=== PATIENT | female | born 1940 | race African-American/Black ===

== ENCOUNTER 2016-12-22 13:04 | Inpatient (IN) | payer MEDICARE ==
--- NOTE | ~2016-12-22 | EGD ---
EGD REPORT [facility] [address] [place]. [address] NAME: TYRA YUSUF : 42 STATUS : ADM IN PAT#: [id number] AGE: 76 ADM/REG DATE : 12/22/16 MR#: [id number] REPORT SERV DATE: 12/25/16 DICTATED BY: MICKEY LENNON DATE: 12/25/16 REPORT STATUS : Draft TRANSCRIBED BY: [facility] DATE: 12/25/16 Endoscopy Center Patient Name: Tyra Yusuf Date of : 1940 Attending MD: MICKEY LENNON MD Procedure Date No Time: 12/25/2016 Procedure: Colonoscopy Indications: Abnormal CT of the GI tract, Constipation Referring MD: SIMON ZAZUETA Medicines: Monitored Anesthesia Care Complications: No immediate complications. Estimated blood loss: Minimal. Procedure: Pre-Anesthesia Assessment: - ASA Grade Assessment: III - A patient with severe systemic disease. After I obtained informed consent, the scope was passed under direct vision. Throughout the procedure, the patient's blood pressure, pulse, and oxygen saturations were monitored continuously. The CF [id number] was introduced through the anus and advanced to the cecum, identified by appendiceal orifice and ileocecal valve. The colonoscopy was somewhat difficult due to poor bowel prep and a tortuous colon. The patient tolerated the procedure well. The quality of the bowel preparation was fair. Findings: The digital rectal exam was normal. Pertinent negatives include no palpable rectal lesions. The transverse colon was tortuous. Localized mild inflammation characterized by congestion (edema) and erythema was found in the sigmoid colon, along with a single 8 mm ulceration. Biopsies were taken with a cold forceps for histology. The exam was otherwise without abnormality. Impression: - Tortuous colon. - Localized mild inflammation was found in the sigmoid colon. Likely from fecal stasis / impaction. Biopsied. - The examination was otherwise normal. Recommendation: - Return patient to hospital [facility] for ongoing care. - Full liquid diet. Procedure Code(s): --- Professional --- 45701, Colonoscopy, flexible, proximal to splenic EGD REPORT [facility] [address] [facility] [address] [facility] [place] [id number] NAME: TYRA YUSUF : [birth year] STATUS : ADM IN [facility]#: [id number] AGE: 76 ADM/REG DATE : 12/22/16 MR#: [id number] REPORT SERV DATE: 12/25/16 DICTATED BY: MICKEY LENNON DATE: 12/25/16 REPORT STATUS : Draft TRANSCRIBED BY: [employer] DATE: 12/25/16 flexure; with biopsy, single or multiple Diagnosis Code(s): --- Professional --- Q43.8, Other specified congenital malformations of intestine K52.9, Noninfective gastroenteritis and colitis, unspecified R93.3, Abnormal findings on diagnostic imaging of other parts of digestive tract K59.00, Constipation, unspecified CPT copyright 2013 [employer]. All rights reserved. The codes documented in this report are preliminary and upon mandrel press hand review may be revised to meet current compliance requirements. Mickey Lennon MD MICKEY LENNON MD 12/25/2016 9:25 AM This report has been signed electronically. Number of Addenda: 0 Note Initiated On: 12/25/2016 8:32 AM Scope Withdrawal Time 0 hours 10 minutes 32 seconds [address] [facility] [place] [id number]
--- NOTE | ~2016-12-22 | CN ---
Consultation Report [facility] [address] [place]. [address] NAME: TYRA YUSUF : 42 STATUS : ADM IN PAT#: [id number] AGE: 76 ADM/REG DATE : 12/22/16 MR#: [id number] REPORT SERV DATE: 12/23/16 DICTATED BY: MAR JARAMILLO DATE: 12/23/16 REPORT STATUS : Draft TRANSCRIBED BY: MODL DATE: 12/23/16 GI CONSULTATION DATE OF CONSULTATION: 12/23/2016 REASON FOR CONSULTATION: Evaluation and management of abdominal pain, CT evidence of fecal stasis. HISTORY OF PRESENT ILLNESS: Ms Yusuf is a 76-year-old female patient who has been seen by Dr. Gee De La Cruz in the past, who presented to [facility] on 12/22/2016 with a chief complaint of abdominal pain, nausea, vomiting. She tells me that she has a longstanding history of constipation with her only having a bowel movement every two weeks, but since 11/21/2016, she has not had a bowel movement to really account anything she has had increased abdominal pain as well as nausea and vomiting. CT scan done on admission without contrast showed moderate large retained fecal material within a very redundant colon from the cecum through the distal descending colon at the junction with the proximal sigmoid colon where there was a rapid transition to small caliber, decompressed sigmoid colon with decompressed remaining sigmoid colon to the level of the rectosigmoid junction, but no stricture was seen. No obstructing mass, lesion noted. The patient states that she has been consuming GoLYTELY since admission and has had some passage of fecal material, but she continues to have some abdominal pain and cramping I have discussed with her. We will plan on pursuing a colonoscopy tomorrow with Dr. Mares. Risks, benefits, alternatives, and complications detailed for her to include, but not limited to risk of bleeding, perforation, infection, reaction to medications, as well as cardiac pulmonary side effects. She is agreeable to proceed. Her last colonoscopy was in [address] De La Cruz, variable prep internal hemorrhoids, otherwise normal exam was seen. She states she has not seen a GI physician, had any kind of endoscopic workup since that point in time. PAST MEDICAL HISTORY: Positive for upper GI bleed secondary to Jessy-Shaw tear, CVA, three to four years ago on Plavix, cardiac murmur, arthritis/rheumatoid arthritis, type 2 diabetes, anxiety, depression, anemia. SURGICAL HISTORY: Left total shoulder, hysterectomy, tonsillectomy, bilateral knee, carpal tunnel release, back surgery. SOCIAL HISTORY: She lives independently. She is part of the [employer] program. She denies alcohol, tobacco, or illicits. FAMILY HISTORY: Noncontributory from a GI standpoint. ALLERGIES: TO CODEINE. HOME MEDICATIONS: Albuterol, Catapres, Plavix, vitamin B12, Taztia, Lasix, Neurontin, Apresoline, [place], Plaquenil, Lantus, Dilantin, Hyzaar, melatonin, Protonix, Pravachol, Consultation Report [address] [place]. [address] NAME: TYRA YUSUF : 42 STATUS : ADM IN PAT#: [id number] AGE: 76 ADM/REG DATE : 12/22/16 MR#: [id number] REPORT SERV DATE: 12/23/16 DICTATED BY: MAR JARAMILLO DATE: 12/23/16 REPORT STATUS : Draft TRANSCRIBED BY: JULIETTE DATE: 12/23/16 ZolNanci diggs and Systane. REVIEW OF SYSTEMS: A 10-point review of systems obtained pertinent positives being addressed in the history of present illness. PERTINENT LABORATORY DATA: Sodium 139, potassium is 3.6, BUN is 51, creatinine is 2.06. white count is 10.9, hemoglobin 10.4, hematocrit 31.5. PHYSICAL EXAMINATION: VITAL SIGNS: Temperature 98.5, pulse 76, respirations 20, blood pressure 140/72. GENERAL: Reveals an alert, female, resting in bed with left-sided weakness secondary to CVA. She is cooperative. She is in mild distress secondary to abdominal pain, cramping. She is awake, alert, and oriented x3. HEAD, EARS, EYES, NOSE, AND THROAT: Anicteric. Pupils equal, round, reactive to light accommodation. Normocephalic, atraumatic. NECK: No JVD. No palpable nodes. LUNGS: Diminished throughout with normal respiratory effort exhibited. Equal expansion. CARDIOVASCULAR SYSTEM: Regular rate and rhythm. ABDOMEN: Soft, mildly distended with active bowel sounds. Mildly tender to palpation diffusely. EXTREMITIES: No edema. Normal distal pulses. SKIN: Warm, dry, and intact. ASSESSMENT: 1. Constipation with fecal stasis. 2. Abnormal CT scan of the abdomen and pelvis. 3. Nausea and vomiting. 4. Abdominal pain. #3 and 4 are secondary to #1. 5. History of cerebrovascular accident on Plavix, last dose 12/20/2016. PLAN: 1. Prep for colonoscopy to be done on 12/24/2016. We will check a KUB today to assess adequacy of bowel prep. She was started early this morning on clear liquid diet, n.p.o. after midnight. 2. Check TSH. 3. Other recommendations to follow colonoscopy. MINO/JULIETTE LY Mosquera Consultation Report [address] [place]. [address] NAME: TYRA YUSUF ANN : [birth year] STATUS : ADM IN PAT#: [id number] AGE: 76 ADM/REG DATE : 12/22/16 MR#: [id number] REPORT SERV DATE: 12/23/16 DICTATED BY: MAR JARAMILLO DATE: 12/23/16 REPORT STATUS : Draft TRANSCRIBED BY: JULIETTE DATE: 12/23/16 / [id number] CC: Debbie Brantley M.D.
--- NOTE | ~2016-12-22 | CN ---
Consultation Report [facility] [address] [place]. [address] NAME: TYRA YUSUF : 42 STATUS : ADM IN PAT#: [id number] AGE: 76 ADM/REG DATE : 12/22/16 MR#: [id number] REPORT SERV DATE: 12/31/16 DICTATED BY: GM DANG DATE: 12/31/16 REPORT STATUS : Draft TRANSCRIBED BY: JULIETTE DATE: 12/31/16 CONSULTATION DATE OF CONSULTATION: 12/31/2016 SUMMARY: This is a 76-year-old black female, who was admitted for some abdominal pain and multiple medical issues, and we were asked to see her for sudden onset of right lower extremity pain. An x-ray was taken, which showed questionable gas. This was reviewed with the radiologist and this appears to be a fat plane. She has had no trauma to her right lower extremity and the left lower extremity also has some tenderness. PHYSICAL EXAMINATION: GENERAL: Reveals her to be somewhat alert, but short of breath. HEART: Had tachycardia. ABDOMEN: Soft. EXTREMITIES: Showed some minimal swelling in the right lower extremity. Distal pulses could not be felt. There was some minimal tenderness in the left foot as well as a right foot. No crepitus was noted. No tenderness was noted in the calf or the popliteal fossa. The patient is currently intubated from pulmonary problems. I do not feel there are any surgical indications at present on this lady's foot and we will follow her with you if needed. Please call if needed. LORI/JULIETTE Gm Dang M.D. / [id number] CC: Debbie Brantley M.D.
--- NOTE | ~2016-12-22 | CN ---
Consultation Report [address] [place]. [address] NAME: TYRA YUSUF : 42 STATUS : ADM IN PAT#: [id number] AGE: 76 ADM/REG DATE : 12/22/16 MR#: [id number] REPORT SERV DATE: 12/26/16 DICTATED BY: RAKESH CLOUD DATE: 12/26/16 REPORT STATUS : Draft TRANSCRIBED BY: MODL DATE: 12/26/16 CONSULTATION DATE OF CONSULTATION: REASON FOR CONSULTATION: Mrs Tyra Yusuf is 76-year-old female, who was referred for increasing dyspnea and increasing O2 dependent. HOSPITALIST: Kingsley Walden MD. CVD PHYSICIAN: Humza Prado MD. HISTORY OF PRESENT ILLNESS: Mrs Tyra Yusuf was admitted 12/22/2016 with abdominal pain and significant constipation. Over the last several days, she has required increasing oxygen use and is short of breath. We are consulted for possible volume overload. REVIEW OF SYSTEMS: Negative for chest pain, chest discomfort, palpitations. No fevers or chills recently. She has not noted any lower extremity edema. No significant orthopneic symptoms. PAST MEDICAL HISTORY: 1. Dual chamber pacemaker placed in March of 2014. 2. History of CVA on Plavix. 3. Hypertension, longstanding. 4. Hyperlipidemia, currently on pravastatin. 5. Renal insufficiency with creatinine about 1.5. 6. Interstitial lung disease with dyspnea followed by Pulmonology. 7. Diabetes, on oral hypoglycemics. SOCIAL HISTORY: She currently does not drink or smoke, and she had never smoked in the past. FAMILY HISTORY: Negative for early heart disease. Her father had cardiovascular disease but at the age of 82. Hypertension does run in the family. PHYSICAL EXAMINATION: VITAL SIGNS: Blood pressure is 141/60, pulse 64, she is afebrile. GENERAL: In mild distress, at this time. She is using accessory muscles for breathing. She is alert and cooperative. LUNGS: Bilateral breath sounds are heard without rales. Breath sounds are decreased in both bases. CARDIAC: No murmur, rub, or gallop are suggested. ABDOMEN: Her abdomen is soft. EXTREMITIES: Her extremities demonstrate no edema. Consultation Report [address] [place]. [address] NAME: TYRA YUSUF : 42 STATUS : ADM IN PAT#: [id number] AGE: 76 ADM/REG DATE : 12/22/16 MR#: [id number] REPORT SERV DATE: 12/26/16 DICTATED BY: RAKESH CLOUD DATE: 12/26/16 REPORT STATUS : Draft TRANSCRIBED BY: JULIETTE DATE: 12/26/16 LABORATORY EVALUATION: Renal insufficiency noticed with a creatinine 1.7. BNP is mildly elevated at almost 1000. Potassium down at 4.1, white count is elevated 11, hematocrit is reduced to 25. ASSESSMENT: At the present time, there appears to be some volume overload but primarily interstitial lung disease. We will gently diurese and support. She is going to be moved to the intensive care unit. She will be under the care of Dr. Walden, and I have discussed this case with him. MARIANO/JULIETTE Rakesh Cloud M.D. / [id number] CC: Debbie Brantley M.D.
--- NOTE | ~2016-12-22 | HP ---
History And Physical [place] [address] [facility] [place]. [address] NAME: TYRA YUSUF : 42 STATUS : ADM IN PAT#: [id number] AGE: 76 ADM/REG DATE : 12/22/16 MR#: [id number] REPORT SERV DATE: 12/23/16 DICTATED BY: SIMON BRANTLEY DATE: 12/23/16 REPORT STATUS : Draft TRANSCRIBED BY: MODNelia DATE: 12/23/16 DATE OF ADMISSION: 12/22/2016 This is a 76-year-old black female, patient of ours at [facility] with chronic constipation. She has bowel movements apparently every 2 to 3 weeks. She complained of increased lower abdominal pain over the last 2 to 3 days prior to admission and on the night of admission, vomited. She describes decreased appetite over the last 2 months with weight loss, she is unsure of how much weight. The pain was crampy in the lower abdomen. She has had no fever. She did complain of bloating on the day of admission. She was reported to the ER where she was found to have a blood glucose of 42 and abdominal pain and abnormalities of the CT of the abdomen including fecal stasis and possible sigmoid stricture. She was admitted for evaluation and probable colonoscopy and treatment of the above. REVIEW OF SYSTEMS: She has had no chest pain. She does get short of breath particularly on lying down at night and uses oxygen. She has a history of mixed lung disease. She again denies generalized aching or fever or dysuria. She has not noticed any blood in the stool. PAST MEDICAL HISTORY: Also remarkable for a prior CVA with left-sided hemiparesis. Coronary artery disease with LVH and a history of third-degree heart block for which she has a pacemaker. She has diastolic dysfunction as well as she has very labile hypertension and is on multiple medications for this. She has diabetes with neuropathy and chronic kidney disease that is varied between stage III and stage IV for which she sees a ignition mechanic. She has peripheral vascular disease, she has mixed lung disease, both obstructive and restrictive. She has reflux esophagitis. She has anxiety and depression. She has a history of Rh negative rheumatoid arthritis for which she sees Dr. Garg with a history of Sjogren syndrome. She has functional urinary incontinence and glaucoma. MEDICATIONS: Have been Lortab 5 t.i.d.; Plavix 75 daily; Neurontin 100 in the morning and 500 in the evening; losartan HCT 100/25 daily; hydralazine 75 mg t.i.d.; hydroxychloroquine 400 mg daily; Zofran p.r.n.; vitamin B12 daily; melatonin 3 at bedtime; pantoprazole 20 one daily; Xalatan drops for glaucoma daily; nitroglycerin p.r.n.; senna docusate or senna-S two tablets once a day; saline nasal spray; diltiazem ER 360 daily; Lantus 50 mg a day, NovoLog sliding scale at home; vitamin D3 of 50,000 once a month; clonidine 0.3 one tablet t.i.d.; Biotene mouth spray; MiraLAX daily; Zoloft 100 daily; Flonase twice a day; trazodone 100 at bedtime; Pravachol 40 at bedtime; Lasix 40 a day; DuoNeb 4 times a day as needed for COPD; and O2 at night and p.r.n. SURGICAL HISTORY: She has had left knee surgery. She has had a right cataract surgery. She has had a tonsillectomy and a hysterectomy. SOCIAL HISTORY: She is . She is a former smoker. FAMILY HISTORY: Positive for diabetes, renal failure, dementia, and breast cancer. History And Physical [address] [address] NAME: TYRA YUSUF : 42 STATUS : ADM IN [facility]#: [id number] AGE: 76 ADM/REG DATE : 12/22/16 MR#: [id number] REPORT SERV DATE: 12/23/16 DICTATED BY: SIMON BRANTLEY DATE: 12/23/16 REPORT STATUS : Draft TRANSCRIBED BY: JULIETTE DATE: 12/23/16 PHYSICAL EXAMINATION: VITAL SIGNS: Temperature is 98.7, heart rate 83, respiratory rate 18, O2 saturation 98% on 2 L, blood pressure presently 140/72, but was earlier 188/84. She is 5 feet 2 inches and has not been weighed yet. GENERAL: She is alert, sitting up in the bed. HEENT: Mouth is dry. NECK: Supple. Skin turgor is adequate. There is no JVD. LUNGS: There are diminished breath sounds in the bases and I do not hear any rhonchi or wheezes. She is aerating the upper lungs. HEART EXAM: She has a regular rhythm. She has a pacemaker in place in the left chest wall. She has a high-pitched systolic murmur and is known to have mitral stenosis and some mitral regurgitation. ABDOMEN: Soft. She is tender across the lower abdomen. She has active bowel sounds. EXTREMITIES: I do not see any rashes today but she does have some mild callus of her left heel. There is no edema of the lower extremities. She has palpable distal pulses. There is no calf tenderness. LABORATORY DATA: This morning on admission, her creatinine was 2.56, sodium 140, potassium 3.5, chloride 104, BUN 62, glucose 40, and calcium 8.6. White count 10.9, hemoglobin and hematocrit 10.4 and 31.5 with adequate platelets at 298,000. The morning after admission, her creatinine has improved to 2.06. Her glucose is up to 108. Her albumin is 2.6. ASSESSMENT AND PLAN: 1. Lower abdominal pain. This patient has chronic constipation and uses opioids for her chronic pain. She has fecal stasis on CT and a possible sigmoid stricture. Plan is clear liquid diet, GoLYTELY prep, and colonoscopy. 2. Hypoglycemia, probably secondary to the use of insulin and her recent vomiting. We will hold her Lantus, give her a sliding scale level 1. Continue her D5W and lactated Ringer's for now. 3. Acute renal failure on chronic kidney disease 3 to 4. We will rehydrate and monitor this. 4. Coronary artery disease with left ventricular hypertrophy, diastolic dysfunction, and pacemaker in place. We will continue her medications including Plavix, Lasix, a statin, and losartan and we will obtain an EKG. She also has a CVA with left hemiparesis which is old. We will continue with the Plavix and statin. 5. Hypertension uncontrolled. She is on hydralazine, Cardizem, losartan HCT, and clonidine. We will get all of these medicines restarted here in the office. 6. Degenerative joint disease with seronegative rheumatoid arthritis and will continue her hydroxychloroquine here. Give her IV morphine as needed knowing that this is contributing to the constipation. 7. She is a DNR with limited interventions. ROSSANA/JULIETTE Simon Brantley, History And Physical [address] [address] NAME: TYRA YUSUF : 42 STATUS : ADM IN PAT#: [id number] AGE: 76 ADM/REG DATE : 12/22/16 MR#: [id number] REPORT SERV DATE: 12/23/16 DICTATED BY: SIMON BRANTLEY DATE: 12/23/16 REPORT STATUS : Draft TRANSCRIBED BY: JULIETTE DATE: 12/23/16 [place] / [id number] CC: Simon Brantley M.D.
--- NOTE | ~2016-12-22 | OP ---
Record Of Operation [facility] [address] [place]. [address] NAME: TYRA YUSUF : 42 STATUS : ADM IN PAT#: [id number] AGE: 76 ADM/REG DATE : 12/22/16 MR#: [id number] REPORT SERV DATE: 12/31/16 DICTATED BY: CHI BRYANT DATE: 12/31/16 REPORT STATUS : Draft TRANSCRIBED BY: MODL DATE: 12/31/16 DATE OF PROCEDURE: 12/31/2016 TIME: 1000 hours. PROCEDURE: Intubation. INDICATION: Acute hypoxic respiratory failure. Pre-oxygenated 100% oxygen monitored by blood pressure, EKG, and pulse oximetry. Etomidate 20 mg IV given. #7.5 endotracheal tube passed under direct laryngoscopic vision to 23 cm. Tube seen to enter between cords. Confirmed by end-tidal CO2 monitor. Good breath sounds bilaterally. Saturation 100% post. RP/JULIETTE Chi Bryant M.D. / [id number] CC: Debbie Brantley M.D.
--- NOTE | ~2016-12-22 | EGD ---
EGD REPORT [facility] [address] [address] NAME: TYRA MONTALVO : 42 STATUS : ADM IN PAT#: [id number] AGE: 76 ADM/REG DATE : 12/22/16 MR#: [id number] REPORT SERV DATE: 12/25/16 DICTATED BY: MICKEY LENNON DATE: 12/25/16 REPORT STATUS : Draft [facility]ANSCRIBED BY: [facility] DATE: 12/25/16 Endoscopy Center Patient Name: Tyra Montalvo Date of : 1940 Attending MD: MICKEY LENNON MD Procedure Date No Time: 12/25/2016 Procedure: Upper GI endoscopy Indications: Nausea with vomiting Referring MD: SIMON ZAZUETA Medicines: Monitored Anesthesia Care Complications: No immediate complications. Estimated blood loss: None. Procedure: Pre-Anesthesia Assessment: - ASA Grade Assessment: III - A patient with severe systemic disease. After obtaining informed consent, the endoscope was passed under direct vision. Throughout the procedure, the patient's blood pressure, pulse, and oxygen saturations were monitored continuously. The GIF [id number] was introduced through the mouth, and advanced to the second part of duodenum. The upper GI endoscopy was accomplished without difficulty. The patient tolerated the procedure well. Findings: The examined esophagus was normal. The Z-line was regular and was found 40 cm from the incisors. The entire examined stomach was normal. The examined duodenum was normal. The cardia and gastric fundus were normal on retroflexion. Impression: - Normal examination. Recommendation: - Perform a colonoscopy today. Procedure Code(s): --- Professional --- 69881, Esophagogastroduodenoscopy, flexible, transoral; diagnostic, including collection of specimen(s) by brushing or washing, when performed (separate procedure) Diagnosis Code(s): --- Professional --- R11.2, Nausea with vomiting, unspecified CPT copyright 2013 [employer]. All rights reserved. EGD REPORT [facility] [address] [facility] [facility]. [address] NAME: TYRA MONTALVO : 42 STATUS : ADM IN [facility]#: [id number] AGE: 76 ADM/REG DATE : 12/22/16 MR#: [id number] REPORT SERV DATE: 12/25/16 DICTATED BY: MICKEY LENNON DATE: 12/25/16 REPORT STATUS : Draft TRANSCRIBED BY: [employer] DATE: 12/25/16 The codes documented in this report are preliminary and upon classics teacher review may be revised to meet current compliance requirements. Mickey Lennon MD MICKEY LENNON MD 12/25/2016 8:51 AM This report has been signed electronically. Number of Addenda: 0 Note Initiated On: 12/25/2016 7:46 AM Scope Withdrawal Time 0 hours 0 minutes 0 seconds [id number] [facility] [place] [address]
--- NOTE | ~2016-12-22 | CN ---
Consultation Report [facility] [address] [place]. [address] NAME: TYRA YUSUF : 42 STATUS : ADM IN PAT#: [id number] AGE: 76 ADM/REG DATE : 12/22/16 MR#: [id number] REPORT SERV DATE: 12/29/16 DICTATED BY: CONNIE MEDRANO DATE: 12/29/16 REPORT STATUS : Draft TRANSCRIBED BY: MODL DATE: 12/29/16 CONSULTATION DATE OF CONSULTATION: REASON FOR ADMISSION: Abdominal pain and constipation. REASON FOR REQUEST: Acute kidney injury on chronic kidney disease. HISTORY OF PRESENT ILLNESS: This is a very pleasant 76-year-old female patient, who participates in the PACE program and is followed in our office originally by Dr. Storm Hernandez until group home and now, followed by Dr. Trisha Beasley. Baseline creatinine appears to be around 1.3 to 1.8 with consistent chronic kidney disease, stage 3. She reported to [facility] initially with a complaint of ongoing abdominal pain and constipation. She was placed inpatient in favor of further workup and supportive care and was initially provided IV hydration. This precipitated a volume overload event that the patient was transitioned to the ICU setting where she was seen in consultation by Dr. Walden as well as Dr. Rakesh Colud. Dr. Walden placed her on BiPAP and suggested that the patient required diuretics increasing diuretic support to provide a clearance of her pulmonary vasculature. Cardiology was also following the patient for a known cardiologic history. We are consulted today to evaluate the patient for a rise in her serum creatinine. When she was initially placed on IV fluids, her serum creatinine did fall from a high of 2.56 and decreased to 1.86, 1.57, then 1.73, and her serum creatinine has increased over the last couple of days now at 2.20 prompting an evaluation request from our service. The patient is awake and alert. She denies current chest pain. She does exhibit an increased work of breathing and an increased oxygen requirement. No nausea, vomiting, or diarrhea. PAST MEDICAL HISTORY: Positive for Sjogren syndrome; insulin-dependent diabetes mellitus; chronic kidney disease, stage 3; chronic anemia; as well as coronary artery disease with last echocardiogram in October of 2016. CURRENT ACTIVE MEDICATIONS: Include the following: Artificial tears, Catapres, Plavix, Cardizem, Lovenox, ferrous sulfate, Flonase, Neurontin, Apresoline, Plaquenil, NovoLog, Cozaar, Xalatan, melatonin, Protonix, Zosyn, MiraLAX, Pravachol, Zoloft, p.r.n. anti-pain and antiemetic medications, and electrolyte protocol. REVIEW OF SYSTEMS: Completed. Please see HPI for pertinent details. SOCIAL HISTORY: No ETOH. No illicit drugs. No tobacco. She lives here locally and does require chronically 2 L oxygen support at home. PHYSICAL EXAMINATION: VITAL SIGNS: Blood pressure 143/65, temperature 98.3, respiratory rate at 20, heart rate is Consultation Report [address] [place]. [address] NAME: TYRA YUSUF : 42 STATUS : ADM IN [facility]#: [id number] AGE: 76 ADM/REG DATE : 12/22/16 MR#: [id number] REPORT SERV DATE: 12/29/16 DICTATED BY: CONNIE MEDRANO DATE: 12/29/16 REPORT STATUS : Draft TRANSCRIBED BY: JULIETTE DATE: 12/29/16 60 beats per minute and regular. She is 94% and now on 5 L. GENERAL: She is awake, alert, oriented x3, in no acute distress, but does show an increased work of breathing. HEENT: Normocephalic, atraumatic. Normal ocular movements. No scleral icterus or conjunctival pallor is appreciated. NECK: Supple. No thyromegaly. No JVD or mass. CHEST: Shows positive S1 and S2. No rubs or gallops. LUNGS: Diminished with crackles noted throughout. The upper 2/3 of her lung michele without wheezes, not overtly labored, but somewhat mildly tachypneic. GI: Examination has positive bowel sounds in all four quadrants. No appreciable mass or tenderness. : Examination is deferred. She does have a Lange catheter to bedside drainage with clear yellow urine. EXTREMITIES: Show positive pulses to all four extremities. No clubbing, cyanosis, or edema with the exception of her upper extremity on the left, which is swollen and has underwent an assessment for DVT finding no evidence of deep vein thrombosis. SKIN: Warm, dry, and intact to the visualized surfaces. No rashes, lesions, or ecchymosis. NEUROLOGIC: She appears to be grossly intact. Nonfocal, and she is of appropriate mood and affect. LABORATORY DATA: Pertinent laboratories and imaging to this evaluation: Electrolyte profile; sodium 136, potassium 3.3, chloride 100, CO2 26, BUN 43, creatinine 2.04, reflected GFR at 27 mL/minute, glucose of 163, calcium 7.9. CBC shows white blood cell count of 15.3, RBC 2.76, hemoglobin of 7.6, hematocrit 23.5, platelets of 188. Venous Doppler shows no evidence of upper extremity DVT, as above. Urinary culture rather suggests gram-negative bacilli. Portable chest x-ray taken on 12/28/2016 shows severe diffuse bilateral pulmonary infiltrates consistent with pulmonary edema with no change from previous study. IMPRESSION AND PLAN: Acute kidney injury on chronic kidney disease. The patient is admitted to the PACE program. Baseline creatinine approximately 1.4 to 1.7. Followed previously by Dr. Storm Hernandez, now by Dr. Trisha Beasley in our practice. She was initially provided IV fluids, became volume overloaded, transitioned to the unit. Her diuresis was undertaken and has now transitioned back to the floor. In review of her current medications, it appears her diuretics have been held in light of her rising creatinine, but she is beginning to show a definitive volume overload pattern once again with increased work of breathing, distributed rhonchi in her lung michele and increased oxygen demands. Her last echocardiogram in October of this year showed 60% ejection fraction, mild aortic stenosis, mild mitral stenosis, mild to moderate posteriorly directed eccentric mitral regurgitation. No RVSP is available, reports indicate pulmonary pressures. This patient's acute kidney injury on chronic kidney disease is likely multifactorial in nature. You must consider possible volume fluctuation and increase in diuretic burden, plus or minus affects of her ARB, and cannot completely exclude at this point the possibility of a myocardial renal syndrome. In light of her worsening dyspnea and worsening oxygenation and increased requirement for oxygen support, we will hold ARB. Dose with IV albumin, dose Bumex in pulse dosing form. She has a Lange catheter placed. Follow her closely. Strict I's and O's, Consultation Report [facility] [address] [place]. [address] NAME: TYRA YUSUF ANN : 42 STATUS : ADM IN PAT#: [id number] AGE: 76 ADM/REG DATE : 12/22/16 MR#: [id number] REPORT SERV DATE: 12/29/16 DICTATED BY: CONNIE MEDRANO DATE: 12/29/16 REPORT STATUS : Draft TRANSCRIBED BY: MODL DATE: 12/29/16 daily weights. Consider a repeat of echocardiogram. Restrict her sodium. Restrict her fluids as listed above. A bedside swallow eval. Further modification of treatment plan may be made based on clinical presentation of the patient, laboratory results, further consultation with Renal attending. We appreciate consultation. We are glad to follow this patient with you. DICTATED BY: Jose Francisco Berry NP JR/JULIETET Connie Medrano MD / [id number] CC: Debbie Brantley M.D.
--- NOTE | ~2016-12-22 | CN ---
Consultation Report [facility] [address] [place]. [address] NAME: TYRA YUSUF : 42 STATUS : ADM IN PAT#: [id number] AGE: 76 ADM/REG DATE : 12/22/16 MR#: [id number] REPORT SERV DATE: 12/31/16 DICTATED BY: MONIKA INFANTE DATE: 12/31/16 REPORT STATUS : Draft TRANSCRIBED BY: MODNelia DATE: 12/31/16 INFECTIOUS DISEASE CONSULT DATE OF CONSULTATION: REFERRING PHYSICIAN: Debbie Brantley M.D. REASON FOR REFERRAL: Evaluation and treatment of soft tissue infection. HISTORY OF PRESENT ILLNESS: The patient is a 76-year-old female. She has a past medical history of hypertension, diabetes mellitus, coronary artery disease, chronic renal insufficiency, Sjogren syndrome, for which she was just on Plaquenil, degenerative joint disease, had total knee replacement on the left. She came in here to [facility] on December 22. She has been followed in the pace program, has had increasing abdominal pain, and severe problems with constipation. She was seen by GI and plans were made for colonoscopy, it took several days to achieve bowel prep due to the severe constipation that was done on December 25 with findings of only pathology was an ulcer in the sigmoid colon that was approximately 8 cm that was biopsied and it showed no evidence of malignancy, just a hyperplastic polyp. No colitis seen. She spiked a fever on December 27. Cultures were done of her blood and her urine. Blood cultures remained negative. She was started empirically on Zosyn. Urinalysis did show pyuria and a culture grew E. coli, greater than 100,000 colonies, so she was switched to Levaquin two days ago and has been on that since. Yesterday, she began complaining of pain in her right ankle and foot that grew progressively severe, the patient terms it as a 10/10. She grew more hypoxic and was transferred to [facility] last evening. She had a low-grade fever to 100.3. Her white blood cell count, she had been up to 15 on the yesterday, it was 13.2 today that without a left shift. An x-ray was done and shows what appears to be gas in the dorsal tissues of the foot and extending up into the tissue planes of the ankle. The patient denies any trauma there. She has never had surgery on that side. She has had no lesions, sores, scratches, cuts, and no unusual environmental exposures. PAST MEDICAL HISTORY: Otherwise unremarkable. MEDICATIONS: As described above. ALLERGIES: NO KNOWN ANTIMICROBIAL ALLERGIES. SOCIAL HISTORY: She lives at home with her . Nonsmoker. No history of alcohol or substance abuse. FAMILY HISTORY: Noncontributory. PHYSICAL EXAMINATION: GENERAL: She is awake, alert, and oriented x3, but in severe distress with the pain in the Consultation Report [address] [place]. [address] NAME: TYRA YUSUF : 42 STATUS : ADM IN PAT#: [id number] AGE: 76 ADM/REG DATE : 12/22/16 MR#: [id number] REPORT SERV DATE: 12/31/16 DICTATED BY: MONIKA INFANTE DATE: 12/31/16 REPORT STATUS : Draft TRANSCRIBED BY: JULIETTE DATE: 12/31/16 foot and writhing whenever it is touched. VITAL SIGNS: Her temperature 100.3, pulse 60, respirations 47, blood pressure 112/62. Her weight is 83 kg. HEENT: Sclerae clear. No oropharyngeal lesions. NECK: Supple without meningeal signs. LUNGS: There are decreased breath sounds and rales bilaterally in the bases. HEART: Irregular. ABDOMEN: Soft, nontender. Positive bowel sounds. EXTREMITIES: The right ankle and foot appears to be mildly swollen. There is exquisite tenderness, but no crepitance palpated along those tissues. There are no lesions on the skin itself. No other skin or soft tissue lesions. LABORATORY DATA: Her white blood cell count as previously mention, 13.2 today, hematocrit 24, and platelets 195. BUN and creatinine 49 and 2.3. Procalcitonin is pending. IMPRESSION: Possible necrotizing fascitis based on the severe pain and gas, although the exam is not as impressive as I would have expected for that and I also would have expected more in the way of fever and elevated white blood cell count. If this is present, I would be worried about group A Strep, as well as a polymicrobial synergistic infection, possibly from a bowel source. RECOMMENDATIONS: 1. We will change the Zosyn to clindamycin and cover all of the above possibilities and start the stat. 2. Surgical evaluation, stat. I have discussed her with Dr. Vikas Aguirre because if this is necrotizing fascitis, she will need a debridement if he agrees. I have also discussed her with Dr. Debbie Brantley, the referring physician, and Dr. Devin Bryant in the Intensive Care Unit. Finally, we will follow the patient with you. I appreciate very much your consulting on this patient. KYLE/JULIETTE Monika Infante M.D. / [id number] CC: Bronwyn Mora M.D.
--- NOTE | ~2016-12-22 | DS ---
Discharge Summary [place] [address] [place]. [address] NAME: TYRA YUSUF ANN : 42 STATUS : DIS IN PAT#: [id number] AGE: 76 ADM/REG DATE : 12/22/16 MR#: [id number] REPORT SERV DATE: 01/16/17 DICTATED BY: DEBBIE BRANTLEY DATE: 01/15/17 REPORT STATUS : Draft TRANSCRIBED BY: MODL DATE: 01/15/17 Data Collection from hospitalization DISCHARGE DIAGNOSES: 1. Respiratory failure. 2. Renal failure. 3. Shock liver injury. 4. Acidosis. 5. 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 6. Hypertension. 7. Diabetes. 8. History of cerebrovascular accident with left-sided hemiparesis. 9. Coronary artery disease with left ventricular hypertrophy. 10.History of third-degree heart block, status post pacemaker. 11.Diastolic dysfunction. 12.Diabetic neuropathy. 13.Chronic kidney disease. 14.Peripheral vascular disease. 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 16.Reflux esophagitis. 17.Anxiety and depression. 18.Rh negative rheumatoid arthritis. 19.History of Sjogren syndrome. 20.Functional urinary incontinence. 21.Glaucoma. 22.Former smoker. CONSULTATION: 1. LY Mosquera. 2. Rakesh Cloud M.D. 3. Kingsley Walden MD. 4. Julian Portillo MD. 5. Uriel Wadsworth M.D. 6. Vikas Aguirre M.D. PROCEDURES PERFORMED: 1. Upper GI endoscopy on 12/25/2016. 2. Colonoscopy on 12/25/2016. 3. Intubation on 12/31/2016. 4. CT scan of the abdomen and pelvis without contrast on 12/22/2016. 5. Venous Doppler ultrasound of the right upper extremity on 12/27/2016. 6. CT scan of the chest without contrast on 12/29/2016. 7. Venous Doppler ultrasound of the right lower extremity. PATHOLOGY: Sigmoid colon biopsy - hyperplastic polyp. No colitis seen. DISPOSITION: [facility]. Discharge Summary [place] [address] [place]. [address] NAME: TYRA YUSUF ANN : 42 STATUS : DIS IN PAT#: [id number] AGE: 76 ADM/REG DATE : 12/22/16 MR#: [id number] REPORT SERV DATE: 01/16/17 DICTATED BY: BRANTLEYDEBBIEYannick DATE: 01/15/17 REPORT STATUS : Draft TRANSCRIBED BY: JULIETTE DATE: 01/15/17 HOSPITAL COURSE: This was a 76-year-old female, who was a patient of ours at [facility] with chronic constipation. She had bowel movements apparently every two to three weeks. She complained of increased lower abdominal pain over the past two to three days prior to admission, and on the night of admission, she vomited. She described having a decreased appetite over the past two months with weight loss. She was unsure of how much weight. The pain was crampy in the lower abdomen. She had had no fever, but did complain of bloating on the day of admission. She presented to the emergency room, was found to have a glucose of 42 and abdominal pain and abnormalities of the CT scan of the abdomen including fecal stasis and possible sigmoid stricture. She was admitted to the hospital at this time for further evaluation and treatment. Upon admission, she was found to have fecal stasis on CT scan and possible sigmoid stricture. She was placed on a clear liquid diet. GoLYTELY prep was given. It was felt that she may need to undergo a colonoscopy. Her hypoglycemia was probably secondary to the use of insulin and her recent vomiting. Lantus was held. She was placed on level 1 sliding scale. D5W and lactated Ringer's was continued. The patient was felt to have acute renal failure on chronic kidney disease, stage III-IV, rehydration would be provided. Plavix, Lasix, statin, and losartan were continued. EKG was going to be obtained. She had a history of CVA with left hemiparesis. She was on hydralazine, Cardizem, losartan, hydrochlorothiazide, and clonidine. These medications were going to be restarted. Hydroxychloroquine would be continued here. She would be given IV morphine as needed for pain. She was a DNR code status with limited intervention. She was seen by Pedrito Bonilla for evaluation and management of abdominal pain and CT evidence of fecal stasis. The patient said she had been consuming GoLYTELY since admission and had some passage of fecal material, but she continued to have some abdominal pain and cramping. It was felt that she should undergo a colonoscopy. Her last colonoscopy was in 2005. She said she had not had any kind of endoscopic workup since that point in time. Other recommendations would follow the colonoscopy. A TSH was going to be checked. On 12/24/2016, she said she felt better. She had left lower abdominal cramping after having her first firm bowel movement and then loose stools. She said that she vomited a small amount of blood. Her bowel movement had a small amount of blood seen. She had no edema. IV glucose was stopped. Bowel prep continued. We were also going to consider an EGD. Her IV fluids were decreased. Potassium supplementation was given. On 12/25/2016, she was taken to the endoscopic suite where she underwent upper GI endoscopy. This was a normal examination. A colonoscopy was also performed. She was found to have a tortuous colon. There was localized mild inflammation found in the sigmoid colon, this was likely from fecal stasis/impaction, it was biopsied. The examination was otherwise normal. The patient does have normocytic anemia. The following day, she had had a hypoxic episode around 4:00 a.m. O2 saturation was 58%. Rebreather was placed and her O2 saturation increased to 97%-100%. The patient was somnolent. IV Lasix was given. The head of her bed was elevated. Clonidine was increased. IV MiraLAX was being given. The patient was felt to have a redundant colon. She does use opiates. On 12/27/2016, she developed a temperature to 101. She denied any increased cough. She had used BiPAP overnight. Her diet was going to be advanced. Gentle IV fluids were being given. MiraLAX was provided. She still had significant dyspnea. Recent echocardiogram in October had shown normal biventricular function. She had [id number] mitral Discharge Summary [place] [id number] [facility] [place]. [address] NAME: YUSUF,ROSEMARIE : 42 STATUS : DIS IN PAT#: [id number] AGE: 76 ADM/REG DATE : 12/22/16 MR#: [id number] REPORT SERV DATE: 01/16/17 DICTATED BY: DEBBIE BRANTLEY DATE: 01/15/17 REPORT STATUS : Draft TRANSCRIBED BY: MODL DATE: 01/15/17 regurgitation. She developed some left upper extremity edema. A venous Doppler ultrasound of the right upper extremity was performed. There was no evidence of DVT. She was seen by Dr. Kingsley Walden. An ABG had shown no significant hypercapnia. Chest x-ray findings were consistent with pulmonary edema. Her overall picture was not consistent with acute exacerbation of pulmonary fibrosis at this time. Diuresis was continued. Arterial blood gas would be rechecked. BNP was going to be checked as well. The patient was also seen by Dr. Rakesh Cloud. The patient had had increasing dyspnea and then was increasingly O2 dependent. Creatinine level was 1.7. BNP was mildly elevated at almost 1000. White count was 11. She appeared to have some volume overload, but primarily interstitial lung disease. Gentle diuresis and supportive care would be continued. She had been moved to the intensive care unit. The following day, she said she wanted to go home. She had no chest pain. White count was 15.1. Lasix was held. She was felt to have acute kidney injury. Creatinine level was 2.22. The patient said she did not want to undergo dialysis. DuoNebs were being provided. IV fluids were stopped. We encouraged oral liquids. Lasix was held. On 12/29/2016, she was seen by Dr. Julian Portillo regarding acute kidney injury on chronic kidney disease. Her creatinine level had increased to 2.20. She denied any current chest pain, but did exhibit an increased work of breathing and increased oxygen requirement. Urinary culture had suggesting gram-negative bacilli. Her venous Doppler showed no evidence of upper extremity DVT. Her baseline creatinine was approximately 1.4 to 1.7. Her acute kidney injury on chronic kidney disease was likely multifactorial in nature. She was given a dose of IV albumin and a dose of Bumex in the pulse dosing form. A Lange catheter was in place. Fluid would be restricted. Bedside swallow evaluation was requested. A CT scan of the chest without contrast was performed. This revealed small free-flowing bilateral pleural effusions as well as heart failure with severe cardiomegaly. A suppository was given for constipation. Echocardiogram was performed. On 12/30/2016, a venous Doppler ultrasound of the right lower extremity was performed. She still had dyspnea and required BiPAP at bedtime and 6 liters during the day. She had complained of right foot pain. There was no reported trauma. There was normal compressibility of the deep venous system throughout the right lower extremity with no visible intraluminal thrombus. There was spontaneous venous flow throughout. Superficial venous system was normal. Speech/Language pathology performed a bedside swallow study. On 12/31/2016, her pacemaker was interrogated and was normal. She had preserved biventricular function with only mild diastolic dysfunction. This was not likely sufficient to cause her degree of dyspnea or volume overload. Leukocytosis was improving. She was transferred to the [facility]. She remained on BiPAP. She was placed on Precedex. She had increased work of breathing. She was short of breath. She had no cough. The patient had a DNI code status. Her hypoxia continued to worsen, requiring increase in BiPAP. She was seen by Dr. Uriel Wadsworth for evaluation and treatment of soft tissue infection. Her blood cultures had remained negative. Urinalysis had shown pyuria and grew E. coli greater than 100,000 colonies. She had been on Zosyn and was switched to Levaquin. She began complaining of pain in the right ankle and foot that grew progressively severe. She described it as 10/10. She grew more hypoxic and had been transferred to the [facility]. She had a low-grade fever of 100.3. Her white blood cell count was now 13.2 without left shift. X- ray appeared to show some gas in the dorsal tissues of the foot and extending up into the tissue planes of the ankle. The patient had denied any trauma. She had never had surgery on that side. She was felt to have possible necrotizing fasciitis based on the severe pain Discharge Summary [address] [address] NAME: YUSUF,ROSEMARIE : 42 STATUS : DIS IN [facility]#: [id number] AGE: 76 ADM/REG DATE : 12/22/16 MR#: [id number] REPORT SERV DATE: 01/16/17 DICTATED BY: DEBBIE BRANTLEY DATE: 01/15/17 REPORT STATUS : Draft TRANSCRIBED BY: MODL DATE: 01/15/17 and gas, although the exam was not as impressive as we would have expected. If this was present, she would be worried about group A strep as well as a polymicrobial synergistic infection possibly from a bowel source. Zosyn was changed to clindamycin. A surgical evaluation was requested. The patient was seen by Dr. Vikas Aguirre. An x-ray of the right lower extremity had shown questionable gas, this was reviewed with the radiologist as it appeared to be a fat plane. She had had no trauma to the right lower extremity. The left lower extremity also had some tenderness. The patient was currently intubated. He did not feel that there was any surgical indication at the present time on this patient's foot. A PICC line was inserted. The patient's condition had declined. She developed acute hypoxic respiratory failure and required intubation by Dr. Devin Bryant. According to the nurse, she was responding well to Bumex drip. The following day, she continued to have pain in the right lower extremity. Uric acid was going to be checked. Bumex drip continued. Diuretic challenge continued. She remained sedated on the vent. She had diffuse rhonchi in her lungs. Clonidine and hydralazine were stopped. She was felt to be critically ill on the ventilator. Clindamycin was stopped. White count was 15.7. Her pacemaker interrogation revealed normal function. On 01/02/2017, the patient was unresponsive. Her blood pressure was 70/40 on full doses of pressors. We were unable to obtain O2 saturation. She was felt to have a shock liver injury and acidosis. She was felt to have probable DIC. The patient had arrested, requiring intubation the day previously. The patient was made a DNR code status with no FRAMER. Her condition continued to decline, and later that morning, she was found without blood pressure, pulse, or respirations. She was pronounced at 9:45 a.m. and released to the above-mentioned home. Information collected by: Beatriz Mancera I submit the above information as my discharge summary. TG/MODL Debbie Brantley M.D. / [id number] CC: Bronwyn Mora M.D. Hans E Yehnert, MD Mark Anderson, M.D. Destin Griffin-Trussell, FNP Coleman Arnold, M.D.
--- NOTE | ~2016-12-22 | CN ---
Consultation Report [facility] [address] [place]. [address] NAME: TYRA YUSUF : 42 STATUS : ADM IN PAT#: [id number] AGE: 76 ADM/REG DATE : 12/22/16 MR#: [id number] REPORT SERV DATE: 12/27/16 DICTATED BY: KINGSLEY WALDEN DATE: 12/27/16 REPORT STATUS : Draft TRANSCRIBED BY: MODL DATE: 12/27/16 PULMONARY CONSULTATION DATE OF CONSULTATION: 12/26/2016 CHIEF COMPLAINT: Unable to obtain from patient. HISTORY OF PRESENT ILLNESS: Mrs. Yusuf is a 76-year-old female with a past medical history noted below. This consult was called in last night for which my colleague saw the patient last night and felt that this patient was currently in heart failure. The patient has had increasing oxygen requirements, chest x-ray with significant amount of infiltrates bilaterally. She has been placed on BiPAP therapy throughout the night. The patient states this morning she feels a whole lot better, however she is quite sleepy. The patient states that, this is since she is still waking up. She is on 6 L of oxygen currently and yesterday she was on a non rebreather. Interestingly enough, an ABG yet done yesterday showed no significant hypercapnia. No ABG was done today. The patient is not able to give me an adequate history as she is dozing off during my clinical encounter with her this morning. PAST MEDICAL HISTORY: History of stroke, left-sided hemiparesis, coronary artery disease with diastolic dysfunction, and AV block, status post pacemaker, chronic kidney disease, mild interstitial lung disease, followed by Dr. Kenyon, reflux esophagitis, depression and anxiety, rheumatoid arthritis, glaucoma. HOME MEDICATIONS: Home medication list reviewed, the patient is on several cardiac medications, DuoNeb therapy. ALLERGIES: CODEINE. SOCIAL HISTORY: The patient currently resides with the [facility]. FAMILY HISTORY: Significant for diabetes, renal failure, breast cancer, dementia per chart. REVIEW OF SYSTEMS: Unable to obtain due to the patient's current encephalopathy. PHYSICAL EXAMINATION: VITAL SIGNS: The patient has currently temperature of maximum 101.4, heart rate in the 50s, respiratory rate 22-30, currently on 6 L nasal cannula with an oxygen saturation 95%, blood pressure currently 150s systolic. GENERAL: The patient is sleepy, she is arousable, can answer simple questions. HEENT: Could not ascertain whether there is any JVD due to neck circumference. PULMONARY: The patient has rapid shallow breathing, distant breath sounds. However, there are crackles bilaterally in the posterior and anterior lung michele. CARDIAC: Bradycardia, no murmurs. Consultation Report [facility] [address] [place] [address] NAME: TYRA YUSUF : 42 STATUS : ADM IN PAT#: [id number] AGE: 76 ADM/REG DATE : 12/22/16 MR#: [id number] REPORT SERV DATE: 12/27/16 DICTATED BY: KINGSLEY WALDEN DATE: 12/27/16 REPORT STATUS : Draft TRANSCRIBED BY: JULIETTE DATE: 12/27/16 ABDOMEN: Soft, nontender, nondistended. EXTREMITIES: Right arm swelling, no lower extremity edema. LABORATORY EXAMINATION: Mild leukocytosis, chronic kidney disease, BNP 993 which is new from her baseline of around 90s. IMAGING DATA: Chest x-ray shows findings consistent with pulmonary edema. ASSESSMENT/PLAN: Mrs. Yusuf is a 76-year-old female with a past medical history of heart failure, who presents to the [facility]monary [facility] with acute hypoxic respiratory failure and somnolence. Our recommendations are below. 1. Unlikely that this is significant from an interstitial lung disease perspective. Upon reviewing her past imaging from 11/2016, she had no significant lower lung field scarring. CT scan from 2010 is essentially clear, however, there is a cardiology report from Dr. Kenyon's office from 2009 that the patient had mild interstitial lung disease. Overall clinical picture is not consistent with an acute exacerbation of pulmonary fibrosis. 2. Would recommend diuresis for which the patient is getting Lasix every 8 hours, p.r.n. BiPAP. 3. We will obtain an arterial blood gas to make sure the patient is not in acute hypercapnic respiratory failure. 4. Check a BNP in the morning to evaluate level of diuresis. 5. Check a left upper extremity Doppler to rule out any DVT due to the swelling. Thank very much for this consultation. We will continue to follow along with you, please call us with any further questions or concerns. HFQ/MODL Kingsley Walden MD / [id number] CC: Debbie Brantley M.D.
[2016-12-22 11:56] LABS: A/G RATIO 0.5 (0.7-1.9); ALBUMIN 2.8 G/DL (3.5-5.0); ALKALINE PHOSPHATASE 80 U/L (45-117); BUN (BLOOD UREA NITROGEN) 62 MG/DL (6-23); CALCIUM, SERUM 8.6 MG/DL (8.5-10.4); CHLORIDE, SERUM 104 MMOL/L (96-112); CO2 (CARBON DIOXIDE) 26 MMOL/L (24-34); CREATININE 2.56 MG/DL (0.55-1.02); GFR AFRICAN AMERICAN 20 ML/MIN (>=60); GFR NON AFRICAN AMERICAN 18 ML/MIN (>=60); GLOBULIN 5.6 G/DL (2.5-4.1); GLUCOSE, SERUM 40 MG/DL (60-99); POTASSIUM, SERUM 3.5 MMOL/L (3.5-5.3); SGOT(AST) 28 U/L (5-40); SGPT(ALT) 13 U/L (5-65); SODIUM, SERUM 140 MMOL/L (135-148); TOTAL BILIRUBIN 0.4 MG/DL (0-1.2); TOTAL PROTEIN 8.4 G/DL (6.0-8.5)
[2016-12-22 12:01] LABS: BASOPHILS 0.2 %; BASOPHILS ABSOLUTE 0.02 10/3/uL (0.0-0.16); EOSINOPHILS 0.8 %; EOSINOPHILS ABSOLUTE 0.09 10/3/uL (0.0-0.53); ER CBC TAT 0 Hrs 11 Mins; HEMATOCRIT 31.5 % (36.0-48.0); HEMOGLOBIN 10.4 g/dL (12.0-16.0); IMMATURE GRANULOCYTES 0.3 %; IMMATURE GRANULOCYTES ABSOLUTE 0.03 10/3/uL (0.0-0.11); LYMPHOCYTES ABSOLUTE 1.09 10/3/uL (0.67-4.30); MEAN CORPUSCULAR HEMOGLOB 27.7 pg (26.0-34.0); MEAN PLATELET VOLUME 9.8 fL (9.2-13.0); MONOCYTES 4.4 %; MONOCYTES ABSOLUTE 0.48 10/3/uL (0.21-1.20); NEUTROPHILS 84.3 %; NEUTROPHILS ABSOLUTE 9.19 10/3/uL (2.02-8.40); PLATELET COUNT 298 10/3/uL (150-400); RBC DISTRIBUTION WIDTH 15.2 % (12.0-16.0); RED CELL COUNT 3.75 10/6/uL (4.0-5.6); WHITE BLOOD CELLS 10.9 10/3/uL (4.5-10.5)
[2016-12-22 12:02] LABS: MANUAL DIFF NO %
[2016-12-22 12:57] LABS: ASCORBIC ACID (UR NOT ORDER) NEG (NEG); BILIRUBIN, URINE NEGATIVE (NEG); ER URINALYSIS TAT 0 Hrs 00 Mins; KETONE, URINE NEGATIVE (NEG); LEUKOCYTE ESTERASE(NOT OR NEG (NEG); NITRITE (URINE) NEG (NEG); WBC (NOT ORDERED) (RFLEX) 2 (0-5)
[~2016-12-22 13:04] MED LIST: *UNABLE1; ACET500CAP PO; AMARYL4 PO; AMB5 PO; ASA5GR PO; ASAB PO; ASAEC PO; ATV.5 PO; BIOTENE DRY MT; CARDIZEM LA360 MG PO; CAT2 PO; CELEXA20 PO; CLARIT10 PO; COZAAR100 MG PO; CYANO1000T PO; DILTIAZEM PO; DRISDOL50000 UNT PO; EYE DROPS; HYZAAR 100/25 T1 TAB PO; INSNOV7030 SC; KAYEXUD PO; KLOR-CON M2020 MEQ PO; L40 PO; LANTUS SC; LORTAB 5 PO; LOTE20 PO; LUMIGAN2.5 ML OPH; LYRICA; MAGOX4 PO; MAXZIDE PO; MCZ25 PO; MELA3 PO; NEUR100 PO; NEUR300 PO; NITROBID2 % TOP; NITROII10C TOP; NITROSTAT0.4 MG SL; NORCO1 TA1 PO; NOVOLOG SC; NTG150 SL; PLAQ200B PO; PLAVIX PO; PRAVACHOL40 MG PO; PRAVASTATIN PO; PREM9 PO; PREMAR PO; PREPARATIO H RE; PRILO PO; PRILOSEC OTC20 MG PO; PROTONIX20 MG PO; SENTAB PO; SPIRO25 PO; TAZTIA X3 PO; TRAZ50 PO; TRIAMTERENE/HCTZ PO; ULTRAM50 PO; XALAT OPH
[2016-12-22] MEDS ORDERED: TAZTIA X3 PO (14:23)
[2016-12-22] MEDS ORDERED: HYZAAR 100/25 T1 TAB PO (14:23)
[2016-12-22] MEDS ORDERED: *UNABLE3 (14:23)
[2016-12-22] MEDS ORDERED: PLAVIX PO (14:23)
[2016-12-22] MEDS ORDERED: L40 PO (14:23)
[2016-12-22] MEDS ORDERED: LANTUS SC (14:24)
[2016-12-22] MEDS ORDERED: [UNRECOGNIZED DRUG - OTHER] (14:24)
[2016-12-22] MEDS ORDERED: ZOL100 PO (14:24)
[2016-12-22] MEDS ORDERED: RX EYE DROP OPH (14:25)
[2016-12-22] MEDS ORDERED: EYE OPH (14:25)
[2016-12-22] MEDS ORDERED: TRAZ100 PO (15:49)
[2016-12-22] MEDS ORDERED: SYSTAN1 OPH (15:49)
[2016-12-22] MEDS ORDERED: XALAT OPH (15:49)
[2016-12-22] MEDS ORDERED: ALBUTEROL5 INH (15:49)
[2016-12-22] MEDS ORDERED: PRAVACHOL40 MG PO (15:50)
[2016-12-22] MEDS ORDERED: NEUR400 PO (15:50)
[2016-12-22] MEDS ORDERED: CYANO1000T PO (15:50)
[2016-12-22] MEDS ORDERED: CAT3 PO (15:50)
[2016-12-22] MEDS ORDERED: NORCO1 TA1 PO (15:51)
[2016-12-22] MEDS ORDERED: NEUR100 PO (15:51)
[2016-12-22] MEDS ORDERED: PROTONIX PO (15:51)
[2016-12-22] MEDS ORDERED: PLAQ200B PO (15:51)
[2016-12-22] MEDS ORDERED: MELA3 PO (15:52)
[2016-12-22] MEDS ORDERED: APRES25 PO (15:55)
[2016-12-23 07:27] LABS: ALBUMIN 2.6 G/DL (3.5-5.0); BUN (BLOOD UREA NITROGEN) 51 MG/DL (6-23); CALCIUM, SERUM 9.1 MG/DL (8.5-10.4); CHLORIDE, SERUM 104 MMOL/L (96-112); CO2 (CARBON DIOXIDE) 26 MMOL/L (24-34); CREATININE 2.06 MG/DL (0.55-1.02); GFR AFRICAN AMERICAN 27 ML/MIN (>=60); GFR NON AFRICAN AMERICAN 23 ML/MIN (>=60); PHOSPHORUS, SERUM 3.6 MG/DL (2.5-4.5); POTASSIUM, SERUM 3.6 MMOL/L (3.5-5.3); SODIUM, SERUM 139 MMOL/L (135-148)
[2016-12-23 07:28] LABS: GLUCOSE, SERUM 108 MG/DL (60-99)
[2016-12-24 06:19] LABS: BASOPHILS 0.3 %; BASOPHILS ABSOLUTE 0.03 10/3/uL (0.0-0.16); EOSINOPHILS 1.2 %; EOSINOPHILS ABSOLUTE 0.14 10/3/uL (0.0-0.53); HEMATOCRIT 28.8 % (36.0-48.0); IMMATURE GRANULOCYTES 0.3 %; IMMATURE GRANULOCYTES ABSOLUTE 0.03 10/3/uL (0.0-0.11); LYMPHOCYTES ABSOLUTE 1.99 10/3/uL (0.67-4.30); MANUAL DIFF NO %; MEAN CORPUS HGB CONC 31.3 g/dL (32.0-36.0); MEAN CORPUSCULAR VOLUME 86.5 fL (80-100); MEAN PLATELET VOLUME 9.8 fL (9.2-13.0); MONOCYTES 6.5 %; MONOCYTES ABSOLUTE 0.76 10/3/uL (0.21-1.20); NEUTROPHILS 74.7 %; NEUTROPHILS ABSOLUTE 8.78 10/3/uL (2.02-8.40); PLATELET COUNT 266 10/3/uL (150-400); RBC DISTRIBUTION WIDTH 15.4 % (12.0-16.0); RED CELL COUNT 3.33 10/6/uL (4.0-5.6); WHITE BLOOD CELLS 11.7 10/3/uL (4.5-10.5)
[2016-12-24 06:20] LABS: INTERNATIONAL NORMAL RATI 1.3 UNITS (-)
[2016-12-24 06:28] LABS: CALCIUM, SERUM 8.2 MG/DL (8.5-10.4); CHLORIDE, SERUM 102 MMOL/L (96-112); CO2 (CARBON DIOXIDE) 30 MMOL/L (24-34); CREATININE 1.89 MG/DL (0.55-1.02); GFR AFRICAN AMERICAN 30 ML/MIN (>=60); GFR NON AFRICAN AMERICAN 26 ML/MIN (>=60); POTASSIUM, SERUM 3.2 MMOL/L (3.5-5.3); SODIUM, SERUM 142 MMOL/L (135-148)
[2016-12-24 06:33] LABS: BUN (BLOOD UREA NITROGEN) 42 MG/DL (6-23); GLUCOSE, SERUM 177 MG/DL (60-99)
[2016-12-25 06:40] LABS: BASOPHILS 0.2 %; BASOPHILS ABSOLUTE 0.02 10/3/uL (0.0-0.16); EOSINOPHILS ABSOLUTE 0.35 10/3/uL (0.0-0.53); HEMATOCRIT 27.1 % (36.0-48.0); HEMOGLOBIN 8.6 g/dL (12.0-16.0); IMMATURE GRANULOCYTES 0.2 %; IMMATURE GRANULOCYTES ABSOLUTE 0.02 10/3/uL (0.0-0.11); MEAN CORPUS HGB CONC 31.7 g/dL (32.0-36.0); MEAN CORPUSCULAR HEMOGLOB 27.5 pg (26.0-34.0); MEAN CORPUSCULAR VOLUME 86.6 fL (80-100); MEAN PLATELET VOLUME 9.9 fL (9.2-13.0); MONOCYTES 5.7 %; MONOCYTES ABSOLUTE 0.66 10/3/uL (0.21-1.20); NEUTROPHILS 57.9 %; NEUTROPHILS ABSOLUTE 6.67 10/3/uL (2.02-8.40); PLATELET COUNT 230 10/3/uL (150-400); RBC DISTRIBUTION WIDTH 15.4 % (12.0-16.0); RED CELL COUNT 3.13 10/6/uL (4.0-5.6); WHITE BLOOD CELLS 11.5 10/3/uL (4.5-10.5)
[2016-12-25 06:42] LABS: MANUAL DIFF NO %
[2016-12-25 06:48] LABS: INTERNATIONAL NORMAL RATI 1.4 UNITS (-); PROTIME (NOT ORD) 16.9 SEC (12.0-14.5)
[2016-12-25 06:53] LABS: CALCIUM, SERUM 8.3 MG/DL (8.5-10.4); CHLORIDE, SERUM 104 MMOL/L (96-112); CO2 (CARBON DIOXIDE) 29 MMOL/L (24-34); CREATININE 1.57 MG/DL (0.55-1.02); GFR AFRICAN AMERICAN 37 ML/MIN (>=60); GFR NON AFRICAN AMERICAN 32 ML/MIN (>=60); SODIUM, SERUM 145 MMOL/L (135-148)
[2016-12-25 06:56] LABS: BUN (BLOOD UREA NITROGEN) 33 MG/DL (6-23); GLUCOSE, SERUM 125 MG/DL (60-99)
[2016-12-26 05:03] LABS: ALLENS TEST Pos; BE (BASE EXCESS) 1.1 MEQ/L (0 +/- 2.5); CARBOXYHEMOGLOBIN 1.4 % (0-3); DEVICE NRB; HCO3 (ACTUAL BICARBONATE) 25.4 MEQ/L (23-27); HEMOBLOGIN CONTENT 8.7 G/DL (12-16); INSTRUMENT SERIAL # 8083; METHEMOGLOBIN 0.4 % (0-3); O2 CONTENT 12.1 VOL% (18-24); OPERATOR ID 30013; PCO2 (CO2 TENSION) 39 MMHG (35-45); PO2 (O2 TENSION) 118 MMHG (79-93); SAMPLE Arterial; pH 7.43 (7.37-7.43)
[2016-12-26 06:31] LABS: BASOPHILS 0.2 %; BASOPHILS ABSOLUTE 0.02 10/3/uL (0.0-0.16); EOSINOPHILS 1.4 %; EOSINOPHILS ABSOLUTE 0.16 10/3/uL (0.0-0.53); HEMATOCRIT 24.9 % (36.0-48.0); HEMOGLOBIN 7.9 g/dL (12.0-16.0); IMMATURE GRANULOCYTES 0.2 %; IMMATURE GRANULOCYTES ABSOLUTE 0.02 10/3/uL (0.0-0.11); LYMPHOCYTES ABSOLUTE 2.27 10/3/uL (0.67-4.30); MEAN CORPUS HGB CONC 31.7 g/dL (32.0-36.0); MEAN CORPUSCULAR HEMOGLOB 26.6 pg (26.0-34.0); MEAN PLATELET VOLUME 9.8 fL (9.2-13.0); MONOCYTES ABSOLUTE 0.68 10/3/uL (0.21-1.20); NEUTROPHILS 72.2 %; PLATELET COUNT 205 10/3/uL (150-400); RBC DISTRIBUTION WIDTH 15.4 % (12.0-16.0); RED CELL COUNT 2.97 10/6/uL (4.0-5.6); RETICULOCYTE COUNT 2.3 % (0.5-2.5); RETICULOCYTE COUNT ABSOLUTE 66.8 10/3/uL (20.2-119.8); WHITE BLOOD CELLS 11.4 10/3/uL (4.5-10.5)
[2016-12-26 06:41] LABS: MANUAL DIFF NO %; MEAN CORPUSCULAR VOLUME 83.8 fL (80-100)
[2016-12-26 07:14] LABS: BUN (BLOOD UREA NITROGEN) 31 MG/DL (6-23); CALCIUM, SERUM 8.3 MG/DL (8.5-10.4); CHLORIDE, SERUM 105 MMOL/L (96-112); CO2 (CARBON DIOXIDE) 27 MMOL/L (24-34); CREATININE 1.73 MG/DL (0.55-1.02); FERRITIN 161 NG/ML (8-252); GFR AFRICAN AMERICAN 33 ML/MIN (>=60); GFR NON AFRICAN AMERICAN 28 ML/MIN (>=60); GLUCOSE, SERUM 145 MG/DL (60-99); IRON BINDING CAPACITY 149 MCG/DL (225-410); IRON, SERUM 34 MCG/DL (35-150); POTASSIUM, SERUM 3.3 MMOL/L (3.5-5.3); SODIUM, SERUM 143 MMOL/L (135-148)
[2016-12-27 06:06] LABS: BASOPHILS 0.2 %; BASOPHILS ABSOLUTE 0.03 10/3/uL (0.0-0.16); EOSINOPHILS 1.2 %; EOSINOPHILS ABSOLUTE 0.15 10/3/uL (0.0-0.53); HEMATOCRIT 26.5 % (36.0-48.0); HEMOGLOBIN 8.4 g/dL (12.0-16.0); IMMATURE GRANULOCYTES 0.2 %; IMMATURE GRANULOCYTES ABSOLUTE 0.03 10/3/uL (0.0-0.11); LYMPHOCYTES 19.8 %; LYMPHOCYTES ABSOLUTE 2.47 10/3/uL (0.67-4.30); MEAN CORPUS HGB CONC 31.7 g/dL (32.0-36.0); MEAN CORPUSCULAR HEMOGLOB 27.5 pg (26.0-34.0); MEAN PLATELET VOLUME 10.8 fL (9.2-13.0); MONOCYTES 6.4 %; NEUTROPHILS 72.2 %; PLATELET COUNT 200 10/3/uL (150-400); RBC DISTRIBUTION WIDTH 15.2 % (12.0-16.0); RED CELL COUNT 3.06 10/6/uL (4.0-5.6); WHITE BLOOD CELLS 12.5 10/3/uL (4.5-10.5)
[2016-12-27 06:09] LABS: MANUAL DIFF NO %; MEAN CORPUSCULAR VOLUME 86.6 fL (80-100)
[2016-12-27 06:21] LABS: BUN (BLOOD UREA NITROGEN) 35 MG/DL (6-23); CALCIUM, SERUM 8.2 MG/DL (8.5-10.4); CHLORIDE, SERUM 103 MMOL/L (96-112); CO2 (CARBON DIOXIDE) 26 MMOL/L (24-34); CREATININE 1.99 MG/DL (0.55-1.02); GFR AFRICAN AMERICAN 28 ML/MIN (>=60); GFR NON AFRICAN AMERICAN 24 ML/MIN (>=60); GLUCOSE, SERUM 183 MG/DL (60-99); POTASSIUM, SERUM 3.8 MMOL/L (3.5-5.3); SODIUM, SERUM 140 MMOL/L (135-148); TROPONIN I 0.19 NG/ML (<0.05)
[2016-12-27 12:25] LABS: ASCORBIC ACID (UR NOT ORDER) NEG (NEG); BILIRUBIN, URINE NEGATIVE (NEG); KETONE, URINE NEGATIVE (NEG); LEUKOCYTE ESTERASE(NOT OR LARGE (NEG); WBC (NOT ORDERED) (RFLEX) 66 (0-5)
[2016-12-27 13:43] LABS: INFLUENZA A SCREEN NEGATIVE (NEGATIVE); INFLUENZA B SCREEN NEGATIVE (NEGATIVE)
[2016-12-27 13:44] LABS: ALLENS TEST Pos; BE (BASE EXCESS) 0.8 MEQ/L (0 +/- 2.5); CARBOXYHEMOGLOBIN 0.5 % (0-3); HCO3 (ACTUAL BICARBONATE) 24.4 MEQ/L (23-27); HEMOBLOGIN CONTENT 10.3 G/DL (12-16); INSTRUMENT SERIAL # 35151; METHEMOGLOBIN 0.5 % (0-3); O2 CONTENT 13.1 VOL% (18-24); PCO2 (CO2 TENSION) 35 MMHG (35-45); PO2 (O2 TENSION) 64 MMHG (79-93); SAMPLE Arterial; pH 7.46 (7.37-7.43)
[2016-12-28 06:05] LABS: BASOPHILS 0.2 %; BASOPHILS ABSOLUTE 0.03 10/3/uL (0.0-0.16); EOSINOPHILS 0.5 %; EOSINOPHILS ABSOLUTE 0.08 10/3/uL (0.0-0.53); HEMATOCRIT 27.6 % (36.0-48.0); HEMOGLOBIN 8.9 g/dL (12.0-16.0); IMMATURE GRANULOCYTES 0.4 %; IMMATURE GRANULOCYTES ABSOLUTE 0.06 10/3/uL (0.0-0.11); LYMPHOCYTES ABSOLUTE 3.32 10/3/uL (0.67-4.30); MEAN CORPUS HGB CONC 32.2 g/dL (32.0-36.0); MEAN CORPUSCULAR HEMOGLOB 27.6 pg (26.0-34.0); MEAN CORPUSCULAR VOLUME 85.4 fL (80-100); MONOCYTES 5.7 %; MONOCYTES ABSOLUTE 0.86 10/3/uL (0.21-1.20); NEUTROPHILS 71.2 %; NEUTROPHILS ABSOLUTE 10.75 10/3/uL (2.02-8.40); PLATELET COUNT 190 10/3/uL (150-400); RBC DISTRIBUTION WIDTH 15.2 % (12.0-16.0); RED CELL COUNT 3.23 10/6/uL (4.0-5.6); WHITE BLOOD CELLS 15.1 10/3/uL (4.5-10.5)
[2016-12-28 06:06] LABS: MANUAL DIFF NO %
[2016-12-28 06:15] LABS: CALCIUM, SERUM 8.3 MG/DL (8.5-10.4); CHLORIDE, SERUM 103 MMOL/L (96-112); CO2 (CARBON DIOXIDE) 26 MMOL/L (24-34); CREATININE 2.22 MG/DL (0.55-1.02); GFR AFRICAN AMERICAN 24 ML/MIN (>=60); GFR NON AFRICAN AMERICAN 21 ML/MIN (>=60); POTASSIUM, SERUM 3.6 MMOL/L (3.5-5.3); SODIUM, SERUM 138 MMOL/L (135-148)
[2016-12-28 06:17] LABS: BUN (BLOOD UREA NITROGEN) 40 MG/DL (6-23); GLUCOSE, SERUM 141 MG/DL (60-99)
[2016-12-29 05:42] LABS: BASOPHILS 0.1 %; BASOPHILS ABSOLUTE 0.02 10/3/uL (0.0-0.16); EOSINOPHILS 0 %; HEMATOCRIT 23.5 % (36.0-48.0); HEMOGLOBIN 7.6 g/dL (12.0-16.0); IMMATURE GRANULOCYTES 0.3 %; IMMATURE GRANULOCYTES ABSOLUTE 0.05 10/3/uL (0.0-0.11); LYMPHOCYTES 11.6 %; LYMPHOCYTES ABSOLUTE 1.77 10/3/uL (0.67-4.30); MANUAL DIFF NO %; MEAN CORPUS HGB CONC 32.3 g/dL (32.0-36.0); MEAN CORPUSCULAR HEMOGLOB 27.5 pg (26.0-34.0); MEAN CORPUSCULAR VOLUME 85.1 fL (80-100); MEAN PLATELET VOLUME 10.5 fL (9.2-13.0); MONOCYTES 5.4 %; MONOCYTES ABSOLUTE 0.82 10/3/uL (0.21-1.20); NEUTROPHILS 82.6 %; PLATELET COUNT 188 10/3/uL (150-400); RBC DISTRIBUTION WIDTH 15.2 % (12.0-16.0); RED CELL COUNT 2.76 10/6/uL (4.0-5.6); WHITE BLOOD CELLS 15.3 10/3/uL (4.5-10.5)
[2016-12-29 05:47] LABS: BUN (BLOOD UREA NITROGEN) 43 MG/DL (6-23); CALCIUM, SERUM 7.9 MG/DL (8.5-10.4); CHLORIDE, SERUM 100 MMOL/L (96-112); CO2 (CARBON DIOXIDE) 26 MMOL/L (24-34); CREATININE 2.04 MG/DL (0.55-1.02); GFR AFRICAN AMERICAN 27 ML/MIN (>=60); GFR NON AFRICAN AMERICAN 23 ML/MIN (>=60); GLUCOSE, SERUM 163 MG/DL (60-99); POTASSIUM, SERUM 3.3 MMOL/L (3.5-5.3); SODIUM, SERUM 136 MMOL/L (135-148)
[2016-12-30 06:20] LABS: BASOPHILS 0.1 %; BASOPHILS ABSOLUTE 0.01 10/3/uL (0.0-0.16); EOSINOPHILS 1.4 %; EOSINOPHILS ABSOLUTE 0.16 10/3/uL (0.0-0.53); HEMATOCRIT 21.7 % (36.0-48.0); HEMOGLOBIN 7.1 g/dL (12.0-16.0); IMMATURE GRANULOCYTES 0.3 %; IMMATURE GRANULOCYTES ABSOLUTE 0.03 10/3/uL (0.0-0.11); LYMPHOCYTES 13.4 %; LYMPHOCYTES ABSOLUTE 1.55 10/3/uL (0.67-4.30); MEAN CORPUS HGB CONC 32.7 g/dL (32.0-36.0); MEAN CORPUSCULAR HEMOGLOB 27.2 pg (26.0-34.0); MEAN CORPUSCULAR VOLUME 83.1 fL (80-100); MEAN PLATELET VOLUME 10.4 fL (9.2-13.0); MONOCYTES 5.8 %; MONOCYTES ABSOLUTE 0.67 10/3/uL (0.21-1.20); NEUTROPHILS ABSOLUTE 9.14 10/3/uL (2.02-8.40); PLATELET COUNT 178 10/3/uL (150-400); RBC DISTRIBUTION WIDTH 15.1 % (12.0-16.0); RED CELL COUNT 2.61 10/6/uL (4.0-5.6); WHITE BLOOD CELLS 11.6 10/3/uL (4.5-10.5)
[2016-12-30 06:26] LABS: MANUAL DIFF NO %
[2016-12-30 06:34] LABS: ALBUMIN 2.2 G/DL (3.5-5.0); BUN (BLOOD UREA NITROGEN) 45 MG/DL (6-23); CALCIUM, SERUM 8.2 MG/DL (8.5-10.4); CHLORIDE, SERUM 99 MMOL/L (96-112); CO2 (CARBON DIOXIDE) 23 MMOL/L (24-34); CREATININE 2.08 MG/DL (0.55-1.02); GFR AFRICAN AMERICAN 26 ML/MIN (>=60); GFR NON AFRICAN AMERICAN 23 ML/MIN (>=60); GLUCOSE, SERUM 145 MG/DL (60-99); PHOSPHORUS, SERUM 3.1 MG/DL (2.5-4.5); POTASSIUM, SERUM 3.7 MMOL/L (3.5-5.3); SODIUM, SERUM 135 MMOL/L (135-148)
[2016-12-31 05:53] LABS: BASOPHILS 0.1 %; BASOPHILS ABSOLUTE 0.01 10/3/uL (0.0-0.16); EOSINOPHILS 1.4 %; EOSINOPHILS ABSOLUTE 0.19 10/3/uL (0.0-0.53); HEMOGLOBIN 7.7 g/dL (12.0-16.0); IMMATURE GRANULOCYTES 0.3 %; IMMATURE GRANULOCYTES ABSOLUTE 0.04 10/3/uL (0.0-0.11); LYMPHOCYTES 14.1 %; LYMPHOCYTES ABSOLUTE 1.86 10/3/uL (0.67-4.30); MEAN CORPUS HGB CONC 32.1 g/dL (32.0-36.0); MEAN CORPUSCULAR HEMOGLOB 27.2 pg (26.0-34.0); MEAN CORPUSCULAR VOLUME 84.8 fL (80-100); MEAN PLATELET VOLUME 10.4 fL (9.2-13.0); MONOCYTES ABSOLUTE 0.66 10/3/uL (0.21-1.20); NEUTROPHILS 79.1 %; NEUTROPHILS ABSOLUTE 10.46 10/3/uL (2.02-8.40); PLATELET COUNT 195 10/3/uL (150-400); RED CELL COUNT 2.83 10/6/uL (4.0-5.6); WHITE BLOOD CELLS 13.2 10/3/uL (4.5-10.5)
[2016-12-31 05:54] LABS: MANUAL DIFF NO %
[2016-12-31 06:08] LABS: ALBUMIN 2.2 G/DL (3.5-5.0); CALCIUM, SERUM 8.7 MG/DL (8.5-10.4); CHLORIDE, SERUM 101 MMOL/L (96-112); CO2 (CARBON DIOXIDE) 21 MMOL/L (24-34); GFR AFRICAN AMERICAN 23 ML/MIN (>=60); GFR NON AFRICAN AMERICAN 20 ML/MIN (>=60); GLUCOSE, SERUM 136 MG/DL (60-99); PHOSPHORUS, SERUM 3.1 MG/DL (2.5-4.5); POTASSIUM, SERUM 3.7 MMOL/L (3.5-5.3); SODIUM, SERUM 136 MMOL/L (135-148)
[2016-12-31 06:12] LABS: BUN (BLOOD UREA NITROGEN) 49 MG/DL (6-23)
[2016-12-31 09:14] LABS: ALLENS TEST Pos; BE (BASE EXCESS) -2.3 MEQ/L (0 +/- 2.5); BIPAP 20/10 cm.H2O; CARBOXYHEMOGLOBIN 1.5 % (0-3); HCO3 (ACTUAL BICARBONATE) 22.4 MEQ/L (23-27); INSTRUMENT SERIAL # 8083; METHEMOGLOBIN 0.4 % (0-3); O2 CONTENT 10.9 VOL% (18-24); OPERATOR ID 32199; PCO2 (CO2 TENSION) 38 MMHG (35-45); PO2 (O2 TENSION) 95 MMHG (79-93); SAMPLE Arterial; pH 7.39 (7.37-7.43)
[2016-12-31 12:09] LABS: CARBOXYHEMOGLOBIN 0.4 % (0-3); HEMOBLOGIN CONTENT 7.8 G/DL (12-16); INSTRUMENT SERIAL # 35151; METHEMOGLOBIN 0.7 % (0-3); MODE CMV; O2 CONTENT 10.8 VOL% (18-24); OPERATOR ID 35188; PCO2 (CO2 TENSION) 39 MMHG (35-45); PO2 (O2 TENSION) 108 MMHG (79-93); SAMPLE Arterial; TIDAL VOLUME 500 ML; pH 7.37 (7.37-7.43)
[2017-01-01 03:46] LABS: BE (BASE EXCESS) -0.2 MEQ/L (0 +/- 2.5); CARBOXYHEMOGLOBIN 0.9 % (0-3); HCO3 (ACTUAL BICARBONATE) 23.7 MEQ/L (23-27); HEMOBLOGIN CONTENT 7.5 G/DL (12-16); INSTRUMENT SERIAL # 35151; METHEMOGLOBIN 0.6 % (0-3); MODE CMV; O2 CONTENT 9.4 VOL% (18-24); OPERATOR ID 17370; PCO2 (CO2 TENSION) 36 MMHG (35-45); PO2 (O2 TENSION) 61 MMHG (79-93); SAMPLE Arterial; TIDAL VOLUME 500 ML; pH 7.44 (7.37-7.43)
[2017-01-01 03:47] LABS: ALLENS TEST Pos
[2017-01-01 08:08] LABS: BASOPHILS 0.1 %; BASOPHILS ABSOLUTE 0.02 10/3/uL (0.0-0.16); EOSINOPHILS 1.7 %; EOSINOPHILS ABSOLUTE 0.27 10/3/uL (0.0-0.53); IMMATURE GRANULOCYTES 0.3 %; IMMATURE GRANULOCYTES ABSOLUTE 0.05 10/3/uL (0.0-0.11); LYMPHOCYTES 12.9 %; LYMPHOCYTES ABSOLUTE 2.03 10/3/uL (0.67-4.30); MEAN CORPUS HGB CONC 33.2 g/dL (32.0-36.0); MEAN CORPUSCULAR HEMOGLOB 27.8 pg (26.0-34.0); MEAN CORPUSCULAR VOLUME 83.7 fL (80-100); MEAN PLATELET VOLUME 10.6 fL (9.2-13.0); MONOCYTES ABSOLUTE 0.79 10/3/uL (0.21-1.20); NEUTROPHILS ABSOLUTE 12.57 10/3/uL (2.02-8.40); PLATELET COUNT 200 10/3/uL (150-400); RBC DISTRIBUTION WIDTH 14.9 % (12.0-16.0); RED CELL COUNT 2.45 10/6/uL (4.0-5.6); WHITE BLOOD CELLS 15.7 10/3/uL (4.5-10.5)
[2017-01-01 08:10] LABS: HEMOGLOBIN 6.8 g/dL (12.0-16.0)
[2017-01-01 08:11] LABS: HEMATOCRIT 20.5 % (36.0-48.0)
[2017-01-01 08:13] LABS: MANUAL DIFF NO %
[2017-01-01 08:20] LABS: ALBUMIN 1.8 G/DL (3.5-5.0); CALCIUM, SERUM 8.4 MG/DL (8.5-10.4); CHLORIDE, SERUM 101 MMOL/L (96-112); CO2 (CARBON DIOXIDE) 25 MMOL/L (24-34); CREATININE 2.63 MG/DL (0.55-1.02); GFR AFRICAN AMERICAN 20 ML/MIN (>=60); GFR NON AFRICAN AMERICAN 17 ML/MIN (>=60); PHOSPHORUS, SERUM 3.6 MG/DL (2.5-4.5); POTASSIUM, SERUM 3.6 MMOL/L (3.5-5.3); SODIUM, SERUM 139 MMOL/L (135-148)
[2017-01-01 08:21] LABS: BUN (BLOOD UREA NITROGEN) 56 MG/DL (6-23); GLUCOSE, SERUM 81 MG/DL (60-99)
[2017-01-01 08:28] LABS: HYPOCHROMIA 1+ (3-10/OIF) (0-2/OIF); PLATELET ESTIMATE ADQ (ADEQUATE)
[2017-01-01 15:28] LABS: HEMATOCRIT 21.6 % (36.0-48.0); MEAN CORPUSCULAR HEMOGLOB 26.1 pg (26.0-34.0); MEAN PLATELET VOLUME 10.8 fL (9.2-13.0); PLATELET COUNT 188 10/3/uL (150-400); RBC DISTRIBUTION WIDTH 15.2 % (12.0-16.0); RED CELL COUNT 2.57 10/6/uL (4.0-5.6); WHITE BLOOD CELLS 17.3 10/3/uL (4.5-10.5)
[2017-01-01 15:29] LABS: HEMOGLOBIN 6.7 g/dL (12.0-16.0)
[2017-01-01 15:30] LABS: MANUAL DIFF YES %
[2017-01-01 15:51] LABS: BAND NEUTROPHILS 8 %; HYPOCHROMIA 1+ (3-10/OIF) (0-2/OIF); LYMPHOCYTES 14 %; LYMPHOCYTES ABSOLUTE (CALC) 2.42 10/3/uL (0.67-4.30); MONOCYTES 1 %; MONOCYTES ABSOLUTE (CALC) 0.17 10/3/uL (0.21-1.20); NEUTROPHILS ABSOLUTE (CALC) 14.71 10/3/uL (2.02-8.40); SEGMENTED NEUTROPHIL (0) 77 %; TOTAL NUCLEATED CELLS 100
[2017-01-01 15:52] LABS: PLATELET ESTIMATE ADQ (ADEQUATE)
[2017-01-01 16:58] LABS: BUN (BLOOD UREA NITROGEN) 59 MG/DL (6-23); CALCIUM, SERUM 8.5 MG/DL (8.5-10.4); CHLORIDE, SERUM 102 MMOL/L (96-112); SODIUM, SERUM 138 MMOL/L (135-148)
[2017-01-01 16:59] LABS: CO2 (CARBON DIOXIDE) 13 MMOL/L (24-34); CREATININE 3.29 MG/DL (0.55-1.02); GFR AFRICAN AMERICAN 15 ML/MIN (>=60); GFR NON AFRICAN AMERICAN 13 ML/MIN (>=60); GLUCOSE, SERUM 42 MG/DL (60-99); PHOSPHORUS, SERUM 5.3 MG/DL (2.5-4.5); POTASSIUM, SERUM 4.8 MMOL/L (3.5-5.3)
[2017-01-01 17:13] LABS: BE (BASE EXCESS) -8.6 MEQ/L (0 +/- 2.5); CARBOXYHEMOGLOBIN 0.5 % (0-3); HCO3 (ACTUAL BICARBONATE) 18.4 MEQ/L (23-27); HEMOBLOGIN CONTENT 5.6 G/DL (12-16); INSTRUMENT SERIAL # 35151; METHEMOGLOBIN 1.2 % (0-3); MODE CMV; O2 CONTENT 7.6 VOL% (18-24); PCO2 (CO2 TENSION) 47 MMHG (35-45); PO2 (O2 TENSION) 105 MMHG (79-93); SAMPLE Arterial; TIDAL VOLUME 500 ML; pH 7.21 (7.37-7.43)
[2017-01-01 17:18] LABS: MEAN CORPUS HGB CONC 32.1 g/dL (32.0-36.0); MEAN CORPUSCULAR HEMOGLOB 27.7 pg (26.0-34.0); MEAN CORPUSCULAR VOLUME 86.4 fL (80-100); MEAN PLATELET VOLUME 9.8 fL (9.2-13.0); NUCLEATED RED BLOOD CELLS 1.6 /100WBC (0-0); RBC DISTRIBUTION WIDTH 15.2 % (12.0-16.0)
[2017-01-01 17:19] LABS: INTERNATIONAL NORMAL RATI 4.2 UNITS (-)
[2017-01-01 17:20] LABS: PARTIAL THROMBO TIME 82.7 SEC (22.5-37.2); PROTIME (NOT ORD) 40.2 SEC (12.0-14.5)
[2017-01-01 17:23] LABS: HEMATOCRIT 15.9 % (36.0-48.0); HEMOGLOBIN 5.1 g/dL (12.0-16.0); PLATELET COUNT 109 10/3/uL (150-400); RED CELL COUNT 1.84 10/6/uL (4.0-5.6)
[2017-01-01 17:24] LABS: MANUAL DIFF YES %
[2017-01-01 17:34] LABS: BUN (BLOOD UREA NITROGEN) 61 MG/DL (6-23); CALCIUM, SERUM 8.2 MG/DL (8.5-10.4); CHLORIDE, SERUM 97 MMOL/L (96-112); CREATININE 3.55 MG/DL (0.55-1.02); GFR AFRICAN AMERICAN 14 ML/MIN (>=60); GFR NON AFRICAN AMERICAN 12 ML/MIN (>=60); POTASSIUM, SERUM 5.1 MMOL/L (3.5-5.3); SODIUM, SERUM 143 MMOL/L (135-148)
[2017-01-01 17:35] LABS: CO2 (CARBON DIOXIDE) 21 MMOL/L (24-34); GLUCOSE, SERUM 235 MG/DL (60-99)
[2017-01-01 17:36] LABS: BAND NEUTROPHILS 20 %; IMMATURE GRANS ABSOLUTE (CALC) 0.44 10/3/uL (0.0-0.11); LYMPHOCYTES 33 %; LYMPHOCYTES ABSOLUTE (CALC) 3.63 10/3/uL (0.67-4.30); METAMYELOCYTES 3 %; MONOCYTES 3 %; MONOCYTES ABSOLUTE (CALC) 0.33 10/3/uL (0.21-1.20); MYELOCYTES 1 %; PLATELET ESTIMATE SLT DEC (ADEQUATE); SEGMENTED NEUTROPHIL (0) 40 %; TOTAL NUCLEATED CELLS 100
[2017-01-01 17:37] LABS: HYPOCHROMIA 1+ (3-10/OIF) (0-2/OIF)
[2017-01-01 23:01] LABS: BE (BASE EXCESS) -26.1 MEQ/L (0 +/- 2.5); CARBOXYHEMOGLOBIN 0.3 % (0-3); HCO3 (ACTUAL BICARBONATE) 5.9 MEQ/L (23-27); INSTRUMENT SERIAL # 35151; PCO2 (CO2 TENSION) 34 MMHG (35-45); PO2 (O2 TENSION) 115 MMHG (79-93); pH 6.87 (7.37-7.43)
[2017-01-01 23:02] LABS: HEMOBLOGIN CONTENT 8.8 G/DL (12-16); MODE CMV; O2 CONTENT 11.7 VOL% (18-24); OPERATOR ID 13861; SAMPLE Arterial; TIDAL VOLUME 500 ML
[2017-01-01 23:18] LABS: MEAN CORPUSCULAR HEMOGLOB 27.6 pg (26.0-34.0); MEAN PLATELET VOLUME 9.3 fL (9.2-13.0); NUCLEATED RED BLOOD CELLS 3.3 /100WBC (0-0); RBC DISTRIBUTION WIDTH 16.1 % (12.0-16.0)
[2017-01-01 23:19] LABS: HEMATOCRIT 25.6 % (36.0-48.0); HEMOGLOBIN 7.6 g/dL (12.0-16.0); RED CELL COUNT 2.75 10/6/uL (4.0-5.6)
[2017-01-01 23:20] LABS: MEAN CORPUS HGB CONC 29.7 g/dL (32.0-36.0); MEAN CORPUSCULAR VOLUME 93.1 fL (80-100); PLATELET COUNT 35 10/3/uL (150-400)
[2017-01-01 23:22] LABS: MANUAL DIFF YES %
[2017-01-01 23:24] LABS: BE (BASE EXCESS) -19.4 MEQ/L (0 +/- 2.5); CARBOXYHEMOGLOBIN 0.3 % (0-3); HCO3 (ACTUAL BICARBONATE) 10.5 MEQ/L (23-27); HEMOBLOGIN CONTENT 8.2 G/DL (12-16); INSTRUMENT SERIAL # 35151; METHEMOGLOBIN 1.1 % (0-3); MODE CMV; O2 CONTENT 10.9 VOL% (18-24); OPERATOR ID 13861; PCO2 (CO2 TENSION) 43 MMHG (35-45); PO2 (O2 TENSION) 105 MMHG (79-93); SAMPLE Arterial; TIDAL VOLUME 500 ML; pH 7.01 (7.37-7.43)
[2017-01-01 23:31] LABS: ALBUMIN 1.7 G/DL (3.5-5.0); BUN (BLOOD UREA NITROGEN) 61 MG/DL (6-23); CALCIUM, SERUM 8.5 MG/DL (8.5-10.4); CHLORIDE, SERUM 100 MMOL/L (96-112); CREATININE 3.78 MG/DL (0.55-1.02); GFR AFRICAN AMERICAN 13 ML/MIN (>=60); GFR NON AFRICAN AMERICAN 11 ML/MIN (>=60); POTASSIUM, SERUM 5.6 MMOL/L (3.5-5.3); SGPT(ALT) 2262 U/L (5-65); SODIUM, SERUM 142 MMOL/L (135-148)
[2017-01-01 23:34] LABS: A/G RATIO 0.4 (0.7-1.9); ALKALINE PHOSPHATASE 217 U/L (45-117); CO2 (CARBON DIOXIDE) 8 MMOL/L (24-34); GLUCOSE, SERUM 33 MG/DL (60-99); TOTAL BILIRUBIN 1.4 MG/DL (0-1.2); TOTAL PROTEIN 5.7 G/DL (6.0-8.5)
[2017-01-02 00:20] LABS: BAND NEUTROPHILS 14 %; BURR CELLS 1+ (3-10/OIF) (0-2/OIF); EOSINOPHILS 1 %; EOSINOPHILS ABSOLUTE (CALC) 0.09 10/3/uL (0.0-0.53); LYMPHOCYTES 53 %; LYMPHOCYTES ABSOLUTE (CALC) 4.77 10/3/uL (0.67-4.30); METAMYELOCYTES 7 %; MONOCYTES 1 %; MONOCYTES ABSOLUTE (CALC) 0.09 10/3/uL (0.21-1.20); MYELOCYTES 3 %; NEUTROPHILS ABSOLUTE (CALC) 3.15 10/3/uL (2.02-8.40); SEGMENTED NEUTROPHIL (0) 21 %; TOTAL NUCLEATED CELLS 100
[2017-01-02 00:45] LABS: SGOT(AST) 13546 U/L (5-40)
[2017-01-02 02:09] LABS: BE (BASE EXCESS) -22.2 MEQ/L (0 +/- 2.5); CARBOXYHEMOGLOBIN 0.1 % (0-3); HCO3 (ACTUAL BICARBONATE) 7.9 MEQ/L (23-27); HEMOBLOGIN CONTENT 8.2 G/DL (12-16); INSTRUMENT SERIAL # 35151; METHEMOGLOBIN 1.1 % (0-3); MODE CMV; OPERATOR ID 13861; PCO2 (CO2 TENSION) 34 MMHG (35-45); PO2 (O2 TENSION) 109 MMHG (79-93); SAMPLE Arterial; TIDAL VOLUME 500 ML; pH 6.98 (7.37-7.43)
[2017-01-02 05:27] LABS: ALBUMIN 1.7 G/DL (3.5-5.0); BUN (BLOOD UREA NITROGEN) 62 MG/DL (6-23); CHLORIDE, SERUM 98 MMOL/L (96-112); CREATININE 3.91 MG/DL (0.55-1.02); GFR AFRICAN AMERICAN 12 ML/MIN (>=60); GFR NON AFRICAN AMERICAN 11 ML/MIN (>=60); POTASSIUM, SERUM 5.2 MMOL/L (3.5-5.3); SODIUM, SERUM 147 MMOL/L (135-148)
[2017-01-02 05:31] LABS: CO2 (CARBON DIOXIDE) 11 MMOL/L (24-34); GLUCOSE, SERUM 37 MG/DL (60-99)
[2017-01-02 06:20] LABS: PHOSPHORUS, SERUM 11.3 MG/DL (2.5-4.5)
[2017-01-02 06:40] LABS: MEAN CORPUS HGB CONC 29.7 g/dL (32.0-36.0); MEAN CORPUSCULAR HEMOGLOB 28.3 pg (26.0-34.0); MEAN CORPUSCULAR VOLUME 95.1 fL (80-100); MEAN PLATELET VOLUME 10.2 fL (9.2-13.0); NUCLEATED RED BLOOD CELLS 9.3 /100WBC (0-0); RBC DISTRIBUTION WIDTH 16.5 % (12.0-16.0); RED CELL COUNT 2.23 10/6/uL (4.0-5.6); WHITE BLOOD CELLS 8.5 10/3/uL (4.5-10.5)
[2017-01-02 06:48] LABS: HEMATOCRIT 21.2 % (36.0-48.0); HEMOGLOBIN 6.3 g/dL (12.0-16.0); PLATELET COUNT 102 10/3/uL (150-400)
[2017-01-02 06:49] LABS: MANUAL DIFF YES %
[2017-01-02 07:13] LABS: PROTIME (NOT ORD) 118.4 SEC (12.0-14.5)
[2017-01-02 07:14] LABS: INTERNATIONAL NORMAL RATI > 15.0 UNITS (-)
[2017-01-02 07:32] LABS: BAND NEUTROPHILS 7 %; IMMATURE GRANS ABSOLUTE (CALC) 0.09 10/3/uL (0.0-0.11); LYMPHOCYTES 60 %; METAMYELOCYTES 1 %; MONOCYTES 2 %; MONOCYTES ABSOLUTE (CALC) 0.17 10/3/uL (0.21-1.20); NEUTROPHILS ABSOLUTE (CALC) 3.15 10/3/uL (2.02-8.40); PLATELET ESTIMATE SLT DEC (ADEQUATE); POLYCHROMASIA 1+ (2-5/OIF) (0-1/OIF); SEGMENTED NEUTROPHIL (0) 30 %; TOTAL NUCLEATED CELLS 100
== END 2017-01-02 13:20 | disposition expired | DRG 388 ==
LOC: ER 13:04 → 5SO 18:05 → IMCU 12-31 01:14 → CCU 12-31 10:25
PROVIDERS: Emergency Medicine; Family Medicine; Hospitalist; Internal Medicine Critical Care Medicine; Internal Medicine Geriatric Medicine; Internal Medicine Nephrology; Nurse Practitioner Family; Radiology Radiation Oncology; Registered Nurse
PROC: 0DJ08ZZ Inspection of Upper Intestinal Tract, Via Natural or Artificial Opening Endoscopic (ICD-10-PCS; 2016-12-25)
PROC: 0DBN8ZX Excision of Sigmoid Colon, Via Natural or Artificial Opening Endoscopic, Diagnostic (ICD-10-PCS; 2016-12-25)
PROC: 5A09457 Assistance with Respiratory Ventilation, 24-96 Consecutive Hours, Continuous Positive Airway Pressure (ICD-10-PCS; 2016-12-26)
PROC: 5A1955Z Respiratory Ventilation, Greater than 96 Consecutive Hours (ICD-10-PCS; principal; 2016-12-31)
PROC: 0BH17EZ Insertion of Endotracheal Airway into Trachea, Via Natural or Artificial Opening (ICD-10-PCS; 2016-12-31)
PROC: 02HV33Z Insertion of Infusion Device into Superior Vena Cava, Percutaneous Approach (ICD-10-PCS; 2016-12-31)
PROC: 4A02X4A Measurement of Cardiac Electrical Activity, Guidance, External Approach (ICD-10-PCS; 2016-12-31)
PROC: 30233N1 Transfusion of Nonautologous Red Blood Cells into Peripheral Vein, Percutaneous Approach (ICD-10-PCS; 2017-01-01)
PROC: 30233R1 Transfusion of Nonautologous Platelets into Peripheral Vein, Percutaneous Approach (ICD-10-PCS; 2017-01-01)
DX: K56.41 Fecal impaction (principal); J96.01 Acute respiratory failure with hypoxia; K72.00 Acute and subacute hepatic failure without coma; R65.21 Severe sepsis with septic shock; J84.9 Interstitial pulmonary disease, unspecified; A41.9 Sepsis, unspecified organism; J44.9 Chronic obstructive pulmonary disease, unspecified; N17.9 Acute kidney failure, unspecified; N18.4 Chronic kidney disease, stage 4 (severe); I50.22 Chronic systolic (congestive) heart failure; I13.0 Hypertensive heart and chronic kidney disease with heart failure and stage 1 through stage 4 chronic kidney disease, or unspecified chronic kidney disease; E87.2 Acidosis; I69.354 Hemiplegia and hemiparesis following cerebral infarction affecting left non-dominant side; Q43.8 Other specified congenital malformations of intestine; L03.115 Cellulitis of right lower limb; N39.0 Urinary tract infection, site not specified; D69.6 Thrombocytopenia, unspecified; E11.42 Type 2 diabetes mellitus with diabetic polyneuropathy; E11.22 Type 2 diabetes mellitus with diabetic chronic kidney disease; M35.00 Sjogren syndrome, unspecified; E11.649 Type 2 diabetes mellitus with hypoglycemia without coma; K52.9 Noninfective gastroenteritis and colitis, unspecified; K59.09 Other constipation; E87.6 Hypokalemia; D64.9 Anemia, unspecified; I25.10 Atherosclerotic heart disease of native coronary artery without angina pectoris; I34.0 Nonrheumatic mitral (valve) insufficiency; Z66 Do not resuscitate; B96.20 Unspecified Escherichia coli [E. coli] as the cause of diseases classified elsewhere; I46.9 Cardiac arrest, cause unspecified; K21.0 Gastro-esophageal reflux disease with esophagitis; M06.9 Rheumatoid arthritis, unspecified; M19.90 Unspecified osteoarthritis, unspecified site; H40.9 Unspecified glaucoma; I35.0 Nonrheumatic aortic (valve) stenosis; F41.9 Anxiety disorder, unspecified; F32.9 Major depressive disorder, single episode, unspecified; F11.90 Opioid use, unspecified, uncomplicated; R39.81 Functional urinary incontinence; R93.3 Abnormal findings on diagnostic imaging of other parts of digestive tract; M79.671 Pain in right foot; Z99.81 Dependence on supplemental oxygen; Z95.0 Presence of cardiac pacemaker; Z79.02 Long term (current) use of antithrombotics/antiplatelets; Z79.899 Other long term (current) drug therapy; Z79.4 Long term (current) use of insulin; Z90.710 Acquired absence of both cervix and uterus; Z98.890 Other specified postprocedural states; Z88.5 Allergy status to narcotic agent
CPT/HCPCS: 31720; 36415; 36569; 36600; 71010; 71020; 71250; 73610-RT; 73630-RT; 74000; 74022; 74176; 80048; 80053; 80069; 81001; 82330; 82570; 82607; 82728; 82746; 82805; 82947; 82962; 83540; 83550; 83605; 83690; 83735; 83880; 84100; 84132; 84145; 84156; 84300; 84443; 84484; 84550; 85025; 85045; 85610; 85730; 86850; 86900; 86901; 86920; 87040; 87077; 87086; 87186; 87641; 87804; 88305; 92610-GN; 92950; 93005; 93321; 93971; 94002; 94003; 94640; 94660; 94770; 96374; 96375; 99285; A9270-GY; C1751; C1894; C8924; C8929; C9113; J0282; J0360; J1205; J2405; J2543; J3370; P9016; P9035; P9045; P9047; Q9957